=== PATIENT | female | born 1960 | race Caucasian/White ===

== ENCOUNTER → 2017-09-20 07:51 | Outpatient (CLI) | payer BC, SELFPAY ==
--- NOTE | 2017-09-20 07:54 | US_ITS ---
STUDY: RENAL ULTRASOUND - COMPLETE REASON FOR EXAM: Female, 57 years old. Bilateral flank pain. Urethral stricture. TECHNIQUE: Ultrasound evaluation of the kidneys was performed with real-time and static jeffers-scale imaging. COMPARISON: None. FINDINGS: RIGHT KIDNEY: Normal location of the right kidney, which is normal in size. The right kidney measures 10.3 cm x 4.7 cm x 5.6 cm. There is a normal cortex of the right kidney. The renal cortex measures 1.3 cm. There is no right renal mass or cyst. There are no right renal calculi. There is no right hydronephrosis. DISTAL RIGHT URETER: There is non-visualization of the distal right ureter. There is no demonstrated right ureterovesical junction calculus. There is no demonstrated right ureteral jet. LEFT KIDNEY: Normal location of the left kidney, which is normal in size. The left kidney measures 10.1 cm x 4.1 cm x 5.6 cm. There is a normal cortex of the left kidney. The renal cortex measures 1.4 cm. There is no left renal mass or cyst. There are no left renal calculi. There is no left hydronephrosis. DISTAL LEFT URETER: There is non-visualization of the distal left ureter. There is no demonstrated left ureterovesical junction calculus. There is no demonstrated left ureteral jet. BLADDER: The distended urinary bladder has a volume of 143 ml. The empty urinary bladder has a volume of 8.0 ml. There is a normal wall thickness of the distended urinary bladder. There is no demonstrated mass within the urinary bladder. There are no demonstrated bladder calculi. US/Kidney and Bladder IMPRESSION: Normal ultrasound of the kidneys and urinary bladder. Electronically Signed: Joe Rosenthal MD at 12:49 EST Tel [phone], Service support ,
== END ==
PROVIDERS: Family Provider Family Medicine; PCP Family Medicine; Visit Provider Nurse Practitioner Adult Health
DX: N35.9 Urethral stricture, unspecified (principal); R10.9 Unspecified abdominal pain
CPT/HCPCS: 76770

== ENCOUNTER → 2018-07-22 10:57 | Outpatient (CLI) | payer BC, SELFPAY ==
--- NOTE | 2018-07-22 10:59 | BI_ITS ---
MAMMOGRAPHY - BILATERAL SCREENING REASON FOR EXAM: Female, 58 years old. Routine annual screening examination. PERTINENT HISTORY: Non-contributory. TECHNIQUE: Digital bilateral breast yari (3D mammographic acquisition) in the CC and MLO projections. 2-D mediolateral oblique (MLO) and craniocaudad (CC) views of both breasts were obtained. CAD: Full Field Digital Mammography with Computer Added Detection was performed. COMPARISON: Comparison is made with prior study dated September 26, 2016 and June 22, 2015. FINDINGS: Breast Composition: The breasts are heterogeneously dense, which may obscure small masses. There are no dominant masses or suspicious calcifications. No other significant abnormalities are identified. There has been no significant change since the prior study. BI/SCREENING MAMM (CAD), BILAT IMPRESSION: Stable bilateral screening mammogram. Yearly follow-up mammogram recommended. (A) ASSESSMENT CATEGORY: BIRADS Category 1: Negative. A letter regarding these results will be sent to the patient by the facility within 30 days. Approximately 10% of breast cancers are not detected by mammography. A normal mammogram should not delay biopsy of a clinically suspicious abnormality. [id number] Electronically Signed: Joe Rosenthal MD at 14:50 EST Tel [phone], Service support ,
--- OUTSIDE RECORDS SUMMARY | 2018-09-14 16:22 | XMS RPT_ITS ---
:1960 Author Organization OHIP Support Name Relationship Address Phone YASIR BEE Unavailable [address] + [place] [address] GAR[place], AMI Unavailable [address] + [place] [address] [employer] Unavailable [address] + [place] [address] YASIR BEE Unavailable [address] + [place] [address] GAR[place], AMI Unavailable [address] + [place] [address] [employer] Unavailable [address] + [place] [address] YASIR BEE Unavailable [address] + [place] [address] GAR[place], AMI Unavailable [address] + [place] [address] [employer] Unavailable [address] + [place] [address] YASIR BEE Unavailable [address] + [place] [address] GAR[place], AMI Unavailable [address] + [place] [address] [employer] Unavailable [address] + [place] [address] YASIR BEE Unavailable [address] + [place] [address] GAR[place], AMI Unavailable [address] + [place] [address] [employer] Unavailable [address] + [place] [address] Care Team Providers Name Role Phone Irena Rico Attending Unavailable Irena Rico Referring Unavailable [place], David Primary Care Unavailable ASSESSMENT, HEALTH RISK Attending Unavailable ASSESSMENT, HEALTH RISK Referring Unavailable [place], David Primary Care Unavailable [place], Demi Attending Unavailable Rodrigo, Demi Referring Unavailable Margarito, David Primary Care Unavailable Rodrigo, Demi Attending Unavailable Margarito, David Referring Unavailable [place], Demi Attending Unavailable Rodrigo, Demi Referring Unavailable [place], David Primary Care Unavailable PROBLEMS PROBLEMS DATE TYPE CONDITION / CODE ATTENDING STATUS SOURCE 07/23/2018 Unknown R10.2 - Pelvic and Demi Wallace Active [facility] perineal pain / Community R10.2(ICD-10) Hospital Repository 07/23/2018 Unknown Z01.411 - Encounter Demi Wallace for gynecological [facility] examination [facility] (general) (routine) Repository with abnormal findings / Z01.411(ICD-10) PROCEDURES PROCEDURES No Procedure Records FoundRESULTS RESULTS PELVIC (NON ) Observed: 07/30/2018 Status: F Source: [place] 12:54 PM [facility] [place] [place] REPOSITORY [facility] Imaging Services [address] [place] [address] Pelvic (Non ) MR#: [id number] Acct: [id number] Name: VIRIDIANA BEE Rep #: [id number] : 1960 F 58 From: Joe Rosenthal MD PCP: David Pimentel MD Status: REG CLI Study: Pelvic (Non ) Date of Exam: 07/30/18 Exam# [id number] Ordering Dr: Demi Wallace LICENSED OPTICIAN-C STUDY: ULTRASOUND OF THE FEMALE PELVIS - COMPLETE REASON FOR EXAM: Female, 58 years old. Pelvic pain. LMP: The patient is postmenopausal. The patient status post hysterectomy and bilateral nephrectomy. TECHNIQUE: Transabdominal and Transvaginal TECHNICAL QUALITY: Adequate. COMPARISON: None. FINDINGS: The patient is status post hysterectomy and bilateral oophorectomy. There is no fluid in the cul-de-sac. The pre void volume of the bladder was 255 ml. US/Pelvic (Non ) IMPRESSION: The patient is status post hysterectomy and bilateral oophorectomy. Electronically Signed: Joe Rosenthal MD at 12:10 EST Tel [phone], Service support , CC: FAUSTINO Wallace; David Pimentel MD Aviation Operations Specialist: Signed REVENUE CYCLE MANAGER OFFICE VISIT Observed: 07/23/2018 Status: F Source: [place] REPORT 12:02 PM [facility] 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 Required: No Is patient in pain?: No Allergies erythromycin base Adverse Reaction (Unknown, Verified 07/23/18 11:43) rash Penicillins Adverse Reaction (Unknown, Verified 07/23/18 11:43) rash Medications conjugated estrogens 0.625 mg/gram vaginal cream TOPICAL PRN g 07/23/18 [History Confirmed 07/23/18] Is last menstrual period known: No Post menopausal: No Patient : No : No PFSH Surgical History Broken jaw (Acute) H/O section (Acute) H/O: hysterectomy (Acute) Melanoma (Acute) Family History Father Heart disease Sister Crohns disease Brother Crohns disease Grandmother Diabetes Social History number of children: 3 current occupational status: employed current occupation: [employer] Smoking Status: Never smoker alcohol intake: current alcohol intake frequency: holidays/special occasions only substance use type: does not use diet: other caffeine: Yes Type: coffee, carbonated beverages Number of servings: 1, tea Number of servings: 2 seatbelt use: always do you feel safe at home: Yes additional social history: Yasir 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 DateName GA/Weeks Outcome Route [facility] WeighInfant GeLabor LgtAnesthesiDel LocatProvider FOB t n h a n HPI ANNUAL: Details: VIRIDIANA BEE is a 58 year old who presents for annual exam. Having lower right pelvic pain, noting worse prior to bowel movement. Had issues with urinary retention 20 yr ago and had surgery to remove scarring. States feels like that but instead of affecting bladder is affecting bowel habits. States will be constipated, have pain then pain resolves after passing stool. Uses OTC stool softener. Has routine colonoscopy scheduled end of July with Dr. Zamorano but has not discussed with with him History ANATOLIY BSO History of abnormal PAP: no Last mammogram: 07/22/18 negative History of abnormal mammogram: no Colon cancer screening: scheduled Female Reproductive History Questions: Metorrhagia: No, Sexually active: No, Dyspareunia: No, PCB: No ROS Const Constitutional: Denies fatigue, weight gain or weight loss Cardio Card: Denies chest pain Resp Resp: Denies cough or shortness of breath with activity GI GI: Reports abdominal pain, constipation and change in stools; denies vomiting or bloating : Reports as per HPI and pelvic pain; denies urinary frequency, urinary urgency, vaginal discharge, vaginal itching, urinary incontinence or difficulty urinating Exam Const General: cooperative, healthy appearing, no acute distress, well developed Orientation: alert, oriented to person, oriented to place [facility] Head: normal to inspection Neck Neck: normal visual inspection Thyroid: thyroid normal Lymphatic: no lymphadenopathy noted Chest Breast inspection: normal inspection of the breasts, normal inspection of the axillae Breast palpation: normal palpation of the breasts, normal palpation of the axillae, no axillary lymphadenopathy Resp Effort AND Inspection: normal respiratory effort GI Palpation: soft, nontender, no masses Rectal Exam: deferred External Female Exam: normal external appearance, normal appearance of the urethra Urethra: normal appearance of the urethra, normal palpation Speculum Exam - Vagina: normal vaginal discharge, atrophic vaginal mucosa Speculum Exam - Cervix: cervix absent Bimanual Exam- Vagina AND Uterus: normal bimanual exam, uterus absent Bimanual Exam- Adnexa, other: normal adnexae, no adnexal masses, adnexae non-tender, pelvic support normal Pelvic Support: normal Neuro General: alert, oriented x3 Psych Affect: normal affect Assessment AND Plan Problems 1. Encounter for gynecological examination with abnormal finding Z01.411 2. Pelvic pain in female R10.2 Plan Completed breast and pelvic exam Reviewed diet and exercise Pap NA Mammogram recent Colonoscopy scheduled. Encouraged should make Dr. Zamorano aware of changes in bowel habits and pain prior to colonoscopy Bone density NA RTO 1 year, prn with problems Demi Wallace [employer] Orders Orders: Coding Level of Care Code Off vis,est,prev 40-64yrs Diagnoses Encounter for gynecological examination with abnormal finding Z01.411 Gynecological examination findings: abnormal findings PRESENT Pelvic pain in female R10.2 07/23/18 1202 <Electronically signed by Demi GAMBOA> Date Deim PLASENCIAC Cosigner Signature: Date (if applicable) CC: SCREENING MAMM (CAD), Observed: 07/22/2018 Status: F Source: [facility] 10:59 AM [facility] [place] [place] REPOS[facility]ORY [facility] Imaging Services [address] [place] [address] SCREENING MAMM (CAD), BILAT MR#: [id number] Acct: [id number] Name: VIRIDIANA BEE Rep #: [id number] : 1960 F 58 From: Joe Rosenthal MD PCP: David Pimnetel MD Status: [facility] Study: SCREENING MAMM (CAD), BILAT Date of Exam: 07/22/18 Exam# [id number] Ordering Dr: Demi Wallace MAMMOGRAPHY - BILATERAL SCREENING REASON FOR EXAM: Female, 58 years old. Routine annual screening examination. PERTINENT HISTORY: Non-contributory. TECHNIQUE: Digital bilateral breast yari (3D mammographic acquisition) in the CC and MLO projections. 2-D mediolateral oblique (MLO) and craniocaudad (CC) views of both breasts were obtained. CAD: Full Field Digital Mammography with Computer Added Detection was performed. COMPARISON: Comparison is made with prior study dated September 26, 2016 and June 22, 2015. FINDINGS: Breast Composition: The breasts are heterogeneously dense, which may obscure small masses. There are no dominant masses or suspicious calcifications. No other significant abnormalities are identified. There has been no significant change since the prior study. BI/SCREENING MAMM (CAD), BILAT IMPRESSION: Stable bilateral screening mammogram. Yearly follow-up mammogram recommended. (A) ASSESSMENT CATEGORY: BIRADS Category 1: Negative. A letter regarding these results will be sent to the patient by the facility within 30 days. Approximately 10% of breast cancers are not detected by mammography. A normal mammogram should not delay biopsy of a clinically suspicious abnormality. [id number] Electronically Signed: Joe Rosenthal MD at 14:50 EST Tel [phone], Service support , CC: FAUSTINO Wallace; David Pimentel MD Aviation Operations Specialist: Signed LIPID PROFILE Collected: 06/04/2018 Status: F Source: [place] 9:29 AM [facility] [place] [place] REPOSITORY TYPE CODE TESTS RESULT OUT OF RANGE REFERENCE UNITS LAB L501.4900 200 mg/dL High CHOL 214 Result Comment: <200 mg/dL Desirable 200-240 mg/dL Borderline >240 mg/dL High Risk LAB L501.5000 mg/dL Normal TRIG 137 Result Comment: The drugs N-Acetylcysteine and Metamizole may falsely depress this assay. Serum Triglycerides Reference Interval Normal <150 mg/dL Borderline high 150 - 199 mg/dL High 200 - 499 mg/dL Very High > or = 500 mg/dL LAB L501.6400 mg/dL Normal HDL 64 Result Comment: The drugs N-Acetylcysteine and Metamizole may falsely depress this assay. Reference Range HDL <40 mg/dL Low HDL Cholesterol HDL >or= 60 mg/dL High HDL Cholesterol LAB L501.6500 0-130 mg/dL Normal LDL 123 LAB L501.6600 5-40 mg/dL Normal VLDL 27 Performed By: #### L500.4100, L501.0100 #### [facility] [address] [place], [address] GLUCOSE Collected: 06/04/2018 Status: F Source: [place] 9:29 AM [facility] [place] [place] REPOSITORY TYPE CODE TESTS RESULT OUT OF RANGE REFERENCE UNITS LAB L501.0100 74-106 mg/dL Normal GLU 77 Result Comment: Please note revised GLUCOSE reference range effective 2017. Performed By: #### L500.4100, L501.0100 #### [facility] [address] [place], [address] CNPN Observed: 06/04/2018 Status: COMPLETED Source: [place] 12:00 AM [facility] REPOSITORY Telephone (ASWSTR) VIRIDIANA BEE ([id number]) 1960 F Date Time Provider Department 06/04/18 DAVID PIMENTEL ASRepliconTR During your visit today, we recorded the following information about you: Michell Henriquez RN, RN 06/04/2018 10:33 AM Signed Pt overdue for screening colonoscoy. Okay for open access. Please call pt to schedule. FATOU Lopez 06/04/2018 1:39 PM Signed 1st failed attempt to contact patient, left voice message Aliza Arana Psr 06/10/2018 1:46 PM Signed 2nd failed attempt to contact patient, left voice message. Evie Arana Psr Evie Arana Psr 06/17/2018 10:15 AM Signed 3rd failed attempt to contact patient, left voice message. Mailing colonoscopy letter. Evie Bullardsil Psr Evie Hydelouise Psr 06/17/2018 11:20 AM Signed Scheduled patient for open access colonoscopy with Dr. Zamorano on 08/16/18. Mailing instructions. Evie Bullardsil Psr WSTR OPEN ACCESS QUESTIONNAIRE 1. Are you or could you be ? No 2. Are you currently having any stomach/gastrointestinal issues at this time such as constipation, diarrhea, abdominal pain, rectal bleeding etc? No 3. Do you have an implanted device such as a defibrillator, pacemaker, Cardiac Stent or deep brain stimulation device? No 4. Do you have any new or past cardiac (heart) or pulmonary (lung) issues? No 5. Is the patient's BMI 40 or greater? No:There is no height or weight on file to calculate BMI.. Last Wt 04/10/17 : 80.3 kg (177 lb) Last Ht 09/26/16 : 167 cm (5' 5.75) 6. Have you had difficulty with prior sedations or complications with other procedures? No 7. Have you had difficulty with anesthesia previously re: ? Difficult intubation? No ? Other difficulty or allergic reaction to anesthesia other than post op N/V? No 8. Do you currently use oxygen or a breathing machine at night? No 9. Do you take any narcotics, depression or anti-Anxiety medications or 3 or more prescription drugs on a daily basis? No 10. Do you use any illegal or recreational drugs? No 11. Have you been hospitalized in the past 6 weeks? No 12. Are you on dialysis or have Chronic Kidney Disease? No 13. Have you been diagnosed with chronic liver disease such as hepatitis or cirrhosis? No 14. Do you have a seizure disorder? No 15. Do you have difficulty swallowing? No 16. Do you have ulcerative colitis or Crohn's disease? No 17. Do you take any Blood thinners, including Aspirin or fish oil? No 18. Do you have any blood disorders (re:hemophiliac)? No 19. Are you Diabetic? No 20. Any other important health information we should be made aware of prior to your colonoscopy? No 21. Any alcohol use: No. To be completed by LIP: Patient appropriate for Open Access Colonoscopy: Yes: appropriate for Open Access Procedure Checklist: Prior to closing the encounter: ? Complete questionnaire: Yes ? Confirm Prep order has been Ordered/Pended: Yes. ? Patient's procedure could be delayed if not given the script for the prep. Please ensure the prep is escripted to pharmacy or printed. Instructions for the prep will print upon filing or pending this smartset. ? Please send all open access questionnaires to [facility] Sched Pool #[id number] Evie Hydelouise Psr 06/17/2018 11:20 AM Signed Health Information For Patients and the Community How to Prepare for Your Colonoscopy Using Golytely, Nulytely, Trilyte or Colyte Preparations IMPORTANT - Please Read These Instructions at Least 2 Weeks Before Your Colonoscopy Wan Instructions: ?Your bowel must be empty so that your doctor can clearly view your colon. Follow all of the instructions in this handout EXACTLY as they are written. If you do NOT follow the directions for when to start drinking the bowel preparation (see next page), your colonoscopy WILL be cancelled. ?Do NOT eat any solid food the ENTIRE day before your colonoscopy. ?Buy your bowel preparation at least 5 days before your colonoscopy. ?Do NOT mix the solution until the day before your colonoscopy. Designated Reservations Manager on the Day of Your Exam A responsible family member or friend MUST come with you to your colonoscopy and REMAIN in the endoscopy area until you are discharged! You are NOT ALLOWED to drive, take a taxi or bus, or leave the Endoscopy Center ALONE. If you do not have a responsible car driver (family member or friend) with you to take you home, your exam cannot be done with sedation and will be cancelled. Medications Some of the medicines you take may need to be stopped or adjusted before your colonoscopy. You MUST call the doctor who ordered any of the following medicines at least 2 weeks before your colonoscopy. ?Blood thinners -- such as Coumadin? (warfarin), Plavix? (clopidogrel), Ticlid? (ticlopidine hydrochloride), Agrylin? (anagrelide), Xarelto? (Rivaroxaban), Pradaxa? (Dabigatran), Eliquis? (Apixaban), and Effient? (Prasugrel). ?Insulin or diabetes pills. Please call the doctor that monitors your glucose levels. Your insulin dosage may need to be adjusted due to the diet restrictions required with this bowel preparation. (Please bring your diabetes medicines with you on the day of your procedure.) If you take aspirin, take it and ALL other medications prescribed by your doctor. On the day of your colonoscopy, take your medications with a sip of water. Revised 09/2016 1 Five (5) Days Before Your Colonoscopy ?Do NOT take medicines that stop diarrhea -- such as Imodium?, Kaopectate?, or Pepto Bismol?. ?Do NOT take fiber supplements -- such as Metamucil?, Citrucel?, or Perdiem?. ?Do NOT take products that contain iron -- such as multi-vitamins -- (the label lists what is in the products). ?Do NOT take vitamin E. Buy the prescription bowel preparation solution at your local pharmacy or drugstore pharmacy. Three (3) Days Before Your Colonoscopy Do NOT eat high-fiber foods -- such as popcorn, beans, seeds (flax, sunflower, quinoa), multigrain bread, nuts, salad/vegetables, or fresh and dried fruit. One (1) Day Before Your Colonoscopy Only drink clear liquids the ENTIRE DAY before your colonoscopy. Do NOT eat any solid foods. Drink at least 8 ounces of clear liquids every hour after waking up. The clear liquids you can drink include: ?water, apple, or white grape juice; broth; coffee or tea (without milk or creamer); clear carbonated beverages such as nafisa koby or lemon-white mountain ak soda; Gatorade? or other sports drinks (not red); Beto-Aid? or other flavored drinks (not red). You may eat plain jello or other gelatins (not red) or popsicles (not red). Do NOT drink alcohol on the day before or the day of the procedure. 2 Revised 09/2016 When to Mix and Drink Your Bowel Prep Follow the instructions on the label. After mixing, place the solution in the refrigerator for a couple of hours before drinking. You may add the flavor packet that came with the bowel preparation. DO NOT add ice, sugar or any flavorings to the solution. Evening Before Your Colonoscopy ?Start drinking the bowel preparation at 6 PM the evening before your colonoscopy. Drink an 8-oz glass of bowel preparation every 10 minutes. You must finish drinking the solution by 9 PM the night before your scheduled procedure. ?You may continue to drink clear liquids only until midnight. Do NOT eat or drink ANYTHING after midnight the night before your procedure or your procedure may be cancelled. This is for your safety and will reduce the risk of having any food or liquid in your stomach move into your lungs (aspiration) during a procedure. If you take aspirin, take it and ALL other prescribed medicines with a sip of water on the day of your colonoscopy. Contact Information: If you are unable to keep your appointment or have any questions about the instructions, please call the facility where the procedure is being performed. Call between the hours of 8:00 AM and 5:00 PM. If you are calling after 5:00 PM, please call Nurse international nurse at [phone]. [facility] [address] [place] [address] Index # [id number] Revised 09/2016 3 Colonoscopy Procedure Overview Please Read Prior to the Procedure What is a Colonoscopy A colonoscopy is an outpatient procedure in which the inside of the large intestine (colon and rectum) is examined. A colonoscopy is commonly used to evaluate gastrointestinal symptoms, such as rectal and intestinal bleeding, abdominal pain, or changes in bowel habits. Colonoscopies are also performed in individuals without symptoms to check for colorectal polyps or cancer. A screening colonoscopy is recommended for anyone 50 years of age and older, and for anyone with parents, siblings or children with a history of colorectal cancer or polyps. What Happens Before a Colonoscopy To have a successful colonoscopy, your bowel must be empty so that your physician can clearly view the colon. To do this, it is very important to read and follow all of the instructions given to you at least 2 weeks BEFORE your exam. If your bowel is not empty, your colonoscopy will not be successful and may have to be repeated. If you feel nauseated or vomit while taking the bowel preparation, wait 30 minutes before drinking more fluid and start with small sips of solution. Some activity (such as walking) or a few soda crackers may help decrease the nausea you are feeling. If the nausea persists, please contact nurse collection correspondent at [phone]. You may experience skin irritation around the anus due to the passage of liquid stools. To prevent and treat skin irritation, you should: ?Apply Vaseline? or Desitin? ointment to the skin around the anus before drinking the bowel preparation medications. These products can be purchased at any drugstore. ?Wipe the skin after each bowel movement with disposable wet wipes instead of toilet paper. These are found in the toilet paper area of the store. ?Sit in a bathtub filled with warm water for 10 to 15 minutes after you finish passing a stool; after soaking, blot the skin dry with a soft cloth, apply Vaseline? or Desitin? ointment to the anal area, and place a cotton ball just outside your anus to absorb leaking fluid. What Happens During a Colonoscopy During a colonoscopy, an experienced physician uses a colonoscope (a long, flexible instrument about 1/2 inch in diameter) to view the lining of the colon. The colonoscope is inserted into the rectum and advanced through the large intestine. If necessary during a colonoscopy, small amounts of tissue can be removed for analysis (a biopsy) and polyps can be identified and entirely removed. In many cases, a colonoscopy allows accurate diagnosis and treatment of colorectal problems without the need for a major operation. Revised 09/2016 5 ?You are asked to wear a hospital gown and an IV will be started. ?You are given a pain reliever and a sedative intravenously (in your vein). You will feel relaxed and somewhat drowsy. ?You will lie on your left side, with your knees drawn up towards your chest. ?A small amount of air is used to expand the colon so the physician can see the colon isabel. ?You may feel mild cramping during the procedure. Cramping can be reduced by taking slow, deep breaths. ?The colonoscope is slowly withdrawn while the lining of your bowel is carefully examined. ?The procedure lasts from 30 minutes to 1 hour. What Happens After a Colonoscopy ?You will stay in a recovery room for observation until you are ready for discharge. ?You may feel some cramping or a sensation of having gas, but this quickly passes. ?If sedation has been given, a responsible family member or friend must drive you home. ?Avoid alcohol, driving, and operating machinery for 24 hours following the procedure. ?Unless otherwise instructed, you may immediately return to your normal diet. We recommend you wait until the day after your procedure to resume normal activities. ?If polyps were removed or a biopsy was taken, the physician performing your colonoscopy will tell you when it is safe to resume taking your blood thinners. ?If a biopsy was taken or a polyp was removed, you may notice a little amount of rectal bleeding for 1 to 2 days after the procedure. If you have a large amount of rectal bleeding, high or persistent fevers, or severe abdominal pain within the next 2 weeks, please go to your local emergency room and call the physician who performed your exam. 6 Revised 09/2016 ?Copyright 6108-9010 [facility]. All rights reserved. Revised 09/2016 Evie Devlin 06/17/2018 11:21 AM Signed Addended by: EVIE MONROE on: 06/17/2018 11:21 AM Modules accepted: Claire Gibson MD 06/18/2018 12:22 PM Signed Addended by: DAVID PIMENTEL MD on: 06/18/2018 12:22 PM Modules accepted: Orders Allergies As of Date: 06/04/2018 Noted Allergy Reaction AMPICILLIN 05/22/2005 ERYTHROMYCIN 05/22/2005 seasonal allergies [Other] 09/25/2005 Date Reviewed: 04/10/2017 Reviewed by: Tess Spears Ma - Fully Assessed Reason for Visit: open access colonoscopy [Other] Primary Visit Diagnosis:Special screening for malignant neoplasms, colon [Z12.11] Order(s):LIPID PANEL (EXTERNAL) [5314596] Order #: [id number] LIPID PANEL (EXTERNAL) [9410496] Order #: [id number] Order #: [id number] COLONOSCOPY SCRN NOT HIGH RISK [Y9981CAF] Order #: [id number]: 1 FUTURE Prescriptions as of 06/04/2018 Sig: PEG 3350 240 GRAM-ELECTROLYTE* Take 4,000 mL by mouth one ti* TRIAMCINOLONE ACETONIDE 0.1 %* Apply 1 application to affect* SCOPOLAMINE 1 MG OVER 3 DAYS * Apply 1 Patch as directed frank* CONJUGATED ESTROGENS 0.625 MG* Use as directed twice a week * PIEXNQATVQJP-NCDHKFLF-ETCYVE * Take 1 tablet by mouth once d* Problem List As Of Date 06/04/2018 Noted Resolved DIFFUS CYSTIC MASTOPATHY [N60.19] INVALID FOR* ATROPHIC VAGINITIS [N95.2] INVALID FOR* Osteoporosis [M81.0] INVALID FOR* More... More... Routine gynecological examination [Z01.419] INVALID FOR*03/01/2012 Class: Chronic More... LBBB (Left Bundle Branch Block) [I44.7] INVALID FOR* More... Abdominal pain, right upper quadrant [R10.11] INVALID FOR* Lumbosacral spondylosis without myelopathy [M47*INVALID FOR* Backache, unspecified [M54.9] INVALID FOR* Other instructions from your clinician: Health Information For Patients and the Community How to Prepare for Your Colonoscopy Using Golytely, Nulytely, Trilyte or Colyte Preparations IMPORTANT - Please Read These Instructions at Least 2 Weeks Before Your Colonoscopy Wan Instructions: ?Your bowel must be empty so that your doctor can clearly view your colon. Follow all of the instructions in this handout EXACTLY as they are written. If you do NOT follow the directions for when to start drinking the bowel preparation (see next page), your colonoscopy WILL be cancelled. ?Do NOT eat any solid food the ENTIRE day before your colonoscopy. ?Buy your bowel preparation at least 5 days before your colonoscopy. ?Do NOT mix the solution until the day before your colonoscopy. Designated Reservations Manager on the Day of Your Exam A responsible family member or friend MUST come with you to your colonoscopy and REMAIN in the endoscopy area until you are discharged! You are NOT ALLOWED to drive, take a taxi or bus, or leave the Endoscopy Center ALONE. If you do not have a responsible car driver (family member or friend) with you to take you home, your exam cannot be done with sedation and will be cancelled. Medications Some of the medicines you take may need to be stopped or adjusted before your colonoscopy. You MUST call the doctor who ordered any of the following medicines at least 2 weeks before your colonoscopy. ?Blood thinners -- such as Coumadin? (warfarin), Plavix? (clopidogrel), Ticlid? (ticlopidine hydrochloride), Agrylin? (anagrelide), Xarelto? (Rivaroxaban), Pradaxa? (Dabigatran), Eliquis? (Apixaban), and Effient? (Prasugrel). ?Insulin or diabetes pills. Please call the doctor that monitors your glucose levels. Your insulin dosage may need to be adjusted due to the diet restrictions required with this bowel preparation. (Please bring your diabetes medicines with you on the day of your procedure.) If you take aspirin, take it and ALL other medications prescribed by your doctor. On the day of your colonoscopy, take your medications with a sip of water. Revised 09/2016 1 Five (5) Days Before Your Colonoscopy ?Do NOT take medicines that stop diarrhea -- such as Imodium?, Kaopectate?, or Pepto Bismol?. ?Do NOT take fiber supplements -- such as Metamucil?, Citrucel?, or Perdiem?. ?Do NOT take products that contain iron -- such as multi- vitamins -- (the label lists what is in the products). ?Do NOT take vitamin E. Buy the prescription bowel preparation solution at your local pharmacy or drugstore pharmacy. Three (3) Days Before Your Colonoscopy Do NOT eat high-fiber foods -- such as popcorn, beans, seeds (flax, sunflower, quinoa), multigrain bread, nuts, salad/vegetables, or fresh and dried fruit. One (1) Day Before Your Colonoscopy Only drink clear liquids the ENTIRE DAY before your colonoscopy. Do NOT eat any solid foods. Drink at least 8 ounces of clear liquids every hour after waking up. The clear liquids you can drink include: ?water, apple, or white grape juice; broth; coffee or tea (without milk or creamer); clear carbonated beverages such as nafisa koby or lemon-white mountain ak soda; Gatorade? or other sports drinks (not red); Beto-Aid? or other flavored drinks (not red). You may eat plain jello or other gelatins (not red) or popsicles (not red). Do NOT drink alcohol on the day before or the day of the procedure. 2 Revised 09/2016 When to Mix and Drink Your Bowel Prep Follow the instructions on the label. After mixing, place the solution in the refrigerator for a couple of hours before drinking. You may add the flavor packet that came with the bowel preparation. DO NOT add ice, sugar or any flavorings to the solution. Evening Before Your Colonoscopy ?Start drinking the bowel preparation at 6 PM the evening before your colonoscopy. Drink an 8-oz glass of bowel preparation every 10 minutes. You must finish drinking the solution by 9 PM the night before your scheduled procedure. ?You may continue to drink clear liquids only until midnight. Do NOT eat or drink ANYTHING after midnight the night before your procedure or your procedure may be cancelled. This is for your safety and will reduce the risk of having any food or liquid in your stomach move into your lungs (aspiration) during a procedure. If you take aspirin, take it and ALL other prescribed medicines with a sip of water on the day of your colonoscopy. Contact Information: If you are unable to keep your appointment or have any questions about the instructions, please call the facility where the procedure is being performed. Call between the hours of 8:00 AM and 5:00 PM. If you are calling after 5:00 PM, please call Nurse international nurse at [phone]. [facility] [address] [address] Index # [id number] Revised 09/2016 3 Colonoscopy Procedure Overview Please Read Prior to the Procedure What is a Colonoscopy A colonoscopy is an outpatient procedure in which the inside of the large intestine (colon and rectum) is examined. A colonoscopy is commonly used to evaluate gastrointestinal symptoms, such as rectal and intestinal bleeding, abdominal pain, or changes in bowel habits. Colonoscopies are also performed in individuals without symptoms to check for colorectal polyps or cancer. A screening colonoscopy is recommended for anyone 50 years of age and older, and for anyone with parents, siblings or children with a history of colorectal cancer or polyps. What Happens Before a Colonoscopy To have a successful colonoscopy, your bowel must be empty so that your physician can clearly view the colon. To do this, it is very important to read and follow all of the instructions given to you at least 2 weeks BEFORE your exam. If your bowel is not empty, your colonoscopy will not be successful and may have to be repeated. If you feel nauseated or vomit while taking the bowel preparation, wait 30 minutes before drinking more fluid and start with small sips of solution. Some activity (such as walking) or a few soda crackers may help decrease the nausea you are feeling. If the nausea persists, please contact nurse collection correspondent at [phone]. You may experience skin irritation around the anus due to the passage of liquid stools. To prevent and treat skin irritation, you should: ?Apply Vaseline? or Desitin? ointment to the skin around the anus before drinking the bowel preparation medications. These products can be purchased at any drugstore. ?Wipe the skin after each bowel movement with disposable wet wipes instead of toilet paper. These are found in the toilet paper area of the store. ?Sit in a bathtub filled with warm water for 10 to 15 minutes after you finish passing a stool; after soaking, blot the skin dry with a soft cloth, apply Vaseline? or Desitin? ointment to the anal area, and place a cotton ball just outside your anus to absorb leaking fluid. What Happens During a Colonoscopy During a colonoscopy, an experienced physician uses a colonoscope (a long, flexible instrument about 1/2 inch in diameter) to view the lining of the colon. The colonoscope is inserted into the rectum and advanced through the large intestine. If necessary during a colonoscopy, small amounts of tissue can be removed for analysis (a biopsy) and polyps can be identified and entirely removed. In many cases, a colonoscopy allows accurate diagnosis and treatment of colorectal problems without the need for a major operation. Revised 09/2016 5 ?You are asked to wear a hospital gown and an IV will be started. ?You are given a pain reliever and a sedative intravenously (in your vein). You will feel relaxed and somewhat drowsy. ?You will lie on your left side, with your knees drawn up towards your chest. ?A small amount of air is used to expand the colon so the physician can see the colon isabel. ?You may feel mild cramping during the procedure. Cramping can be reduced by taking slow, deep breaths. ?The colonoscope is slowly withdrawn while the lining of your bowel is carefully examined. ?The procedure lasts from 30 minutes to 1 hour. What Happens After a Colonoscopy ?You will stay in a recovery room for observation until you are ready for discharge. ?You may feel some cramping or a sensation of having gas, but this quickly passes. ?If sedation has been given, a responsible family member or friend must drive you home. ?Avoid alcohol, driving, and operating machinery for 24 hours following the procedure. ?Unless otherwise instructed, you may immediately return to your normal diet. We recommend you wait until the day after your procedure to resume normal activities. ?If polyps were removed or a biopsy was taken, the physician performing your colonoscopy will tell you when it is safe to resume taking your blood thinners. ?If a biopsy was taken or a polyp was removed, you may notice a little amount of rectal bleeding for 1 to 2 days after the procedure. If you have a large amount of rectal bleeding, high or persistent fevers, or severe abdominal pain within the next 2 weeks, please go to your local emergency room and call the physician who performed your exam. 6 Revised 09/2016 ?Copyright 7429-7423 [facility]. All rights reserved. Revised 09/2016 Prescriptions ordered this encounter Disp Refills Start End PEG 3350 240 GRAM-ELECTROLYTES 22.72* 4000* 0 06/18/2018 06/18/2018 Route: ORAL Sig: Take 4,000 mL by mouth one time only for 1 dose. Letter Text [address] [place] [address] 06/17/2018 Viridiana Bee [id number] Dear Viridiana , As your healthcare provider, our records indicate that you are due for colorectal cancer screening. This is extremely important if you have any family history of colon cancer as well as to the general population over the age of 50. A colonoscopy is a preventative test that we offer to complete this screening. Most insurances will pay for this test without any out of pocket expense to the patient. We have been unsuccessful in reaching you by phone to discuss this procedure. Please contact our schedulers at [phone] schedule an appointment or contact your primary care physician if you have any questions regarding colon cancer screening. As always, your health is of primary concern to our practice. We look forward to hearing from you. Sincerely, [facility] Encounter Status:Closed by EVIE MONROE on 06/17/18 KIDNEY AND BLADDER Observed: 09/20/2017 Status: F Source: JULIO CÉSAR 7:55 AM [facility] [place] [place] [facility] Imaging Services [address] [place] [address] Kidney and Bladder MR#: [id number] Acct: [id number] Name: VIRIDIANA BEE Rep #: [id number] : 1960 F 57 From: Joe Rosenthal MD PCP: David Pimentel MD Status: REG CLI Study: Kidney and Bladder Date of Exam: 09/20/17 Exam# [id number] Ordering Dr: Irena Rico LICENSED OPTICIAN-C STUDY: RENAL ULTRASOUND - COMPLETE REASON FOR EXAM: Female, 57 years old. Bilateral flank pain. Urethral stricture. TECHNIQUE: Ultrasound evaluation of the kidneys was performed with real-time and static jeffers-scale imaging. COMPARISON: None. FINDINGS: RIGHT KIDNEY: Normal location of the right kidney, which is normal in size. The right kidney measures 10.3 cm x 4.7 cm x 5.6 cm. There is a normal cortex of the right kidney. The renal cortex measures 1.3 cm. There is no right renal mass or cyst. There are no right renal calculi. There is no right hydronephrosis. DISTAL RIGHT URETER: There is non-visualization of the distal right ureter. There is no demonstrated right ureterovesical junction calculus. There is no demonstrated right ureteral jet. LEFT KIDNEY: Normal location of the left kidney, which is normal in size. The left kidney measures 10.1 cm x 4.1 cm x 5.6 cm. There is a normal cortex of the left kidney. The renal cortex measures 1.4 cm. There is no left renal mass or cyst. There are no left renal calculi. There is no left hydronephrosis. DISTAL LEFT URETER: There is non-visualization of the distal left ureter. There is no demonstrated left ureterovesical junction calculus. There is no demonstrated left ureteral jet. BLADDER: The distended urinary bladder has a volume of 143 ml. The empty urinary bladder has a volume of 8.0 ml. There is a normal wall thickness of the distended urinary bladder. There is no demonstrated mass within the urinary bladder. There are no demonstrated bladder calculi. US/Kidney and Bladder IMPRESSION: Normal ultrasound of the kidneys and urinary bladder. Electronically Signed: Joe Rosenthal MD at 12:49 EST Tel [phone], Service support , CC: Irena Rico LICENSED OPTICIAN; David Pimentel MD Aviation Operations Specialist: Signed ALLERGIES ALLERGIES DATE TYPE / CODE NAME / CODE REACTION SEVERITY SOURCE 07/23/2018 Drug Penicillins/[id number] Rash Unknown Julio César Allergy/416 476(RXNORM) Formerly [facility] 322640([facility] ED [facility]) Repository 07/23/2018 Drug erythromycin Rash Unknown [place] Allergy/416 base/[id number](RXN Formerly [facility] 201898([facility] ED CT) Repository ENCOUNTERS ENCOUNTERS ADMIT/DISCHARGE ACCOUNT ADMITTING ENCOUNTER LOCATION SOURCE NUMBER CLASS 07/30/2018 [id number] Ambulatory Julio César [place] 1 [facility] ing:OPUS Repository 07/23/2018/ [id number] Ambulatory BMSBuilding:B Julio César [address] [facility] Repository 07/22/2018 [id number] Ambulatory [place] Julio César 4 [facility] ing:OPBI Repository 06/04/2018 [id number] Ambulatory Julio César [place] 2 [facility] ing:HW Repository 09/20/2017 [id number] Ambulatory Julio César [place] 8 [facility] ing:[facility] Repository PAYERS PAYERS ENCOUNTER GUARANTOR PAYER SUBSCRIBER SOURCE 07/30/2018 LAURESA A Primary LAURESA A Julio César [id number] JUSTIN Insurance:ANTHEMPolic DURHAMDOB: [facility] [place], [place] CM, arabella Number: [id number] [address]Nij: [id number] Repository Date:[id number] ) [place], [place] [address]IB: 07/30/2018 Secondary NOT GIVENUNK Julio César Insurance:SELF PAY [facility] Number: Effective Repository Date:2018-07-24 07/23/2018 LAURESA A Primary LAURESA A Julio César [id number] JUSTIN Insurance:ANTHEMPolic DURHAMDOB: [facility], y Number: [id number] [address]Fju: [id number] Repository Date:[id number], [place] [address]GB: 07/23/2018 Secondary NOT GIVENUNK Julio César Insurance:SELF PAY [facility] Number: Effective Repository Date:2018-07-23 07/22/2018 LAURESA A Primary LAURESA A Julio César [id number] JUSTIN Insurance:ANTHEMPolic DURHAMDOB: [facility], y Number: [id number] [address]Wqv: [id number] Repository Date:3556-93-[address] [place], [place] [address]QF: 07/22/2018 Secondary NOT GIVENUNK Julio César Insurance:SELF PAY [facility] Number: Effective Repository Date:2018-05-21 06/04/2018 LAURESA A Primary NOT GIVENUNK Julio César [id number] JUSTIN Insurance:SELF PAY [facility] [address]Pux: [phone]) Number: Effective Repository [phone] () Date:2018-05-24 09/20/2017 LAURESA A Primary LAURESA A Julio César [id number] JUSTIN Insurance:ANTHEMPolic DURHAMDOB: [place] Number: [id number] [address]Rda: [phone]) [id number] Repository [phone] () Date:3620-28-[address], [place] [address]IZ: 09/20/2017 Secondary NOT GIVENUNK Julio César Insurance:SELF PAY [facility] Number: Effective Repository Date:2017-09-10
== END ==
PROVIDERS: Family Provider Family Medicine; PCP Family Medicine; Referring Provider Nurse Practitioner Women's Health; Visit Provider Nurse Practitioner Women's Health
DX: Z12.31 Encounter for screening mammogram for malignant neoplasm of breast (principal)
CPT/HCPCS: 77063; 77067

== ENCOUNTER → 2018-07-30 12:53 | Outpatient (CLI) | payer BC, SELFPAY ==
[2018-07-23 11:28] VITALS: BMI 26.9
--- NOTE | 2018-07-30 12:54 | US_ITS ---
STUDY: ULTRASOUND OF THE FEMALE PELVIS - COMPLETE REASON FOR EXAM: Female, 58 years old. Pelvic pain. LMP: The patient is postmenopausal. The patient status post hysterectomy and bilateral nephrectomy. TECHNIQUE: Transabdominal and Transvaginal TECHNICAL QUALITY: Adequate. COMPARISON: None. FINDINGS: The patient is status post hysterectomy and bilateral oophorectomy. There is no fluid in the cul-de-sac. The pre void volume of the bladder was 255 ml. US/Pelvic (Non ) IMPRESSION: The patient is status post hysterectomy and bilateral oophorectomy. Electronically Signed: Joe Rosenthal MD at 12:10 EST Tel [phone], Service support ,
--- OUTSIDE RECORDS SUMMARY | 2018-09-15 15:35 | XMS RPT_ITS ---
:1960 Author Organization OHIP Support Name Relationship Address Phone WINIFRED BEE Unavailable [address] + [place] [address] [place], AMI Unavailable [address] + [place] [address] [employer] Unavailable [address] + [place] [address] WINIFRED BEE Unavailable [address] + [place] [address] [place], AMI Unavailable [address] + [place] [address] [employer] Unavailable [address] + [place] [address] WINIFRED BEE Unavailable [address] + [place] [address] [place], AMI Unavailable [address] + [place] [address] [employer] Unavailable [address] + [place] [address] WINIFRED BEE Unavailable [address] + [place] [address] [place], AMI Unavailable [address] + [place] [address] [employer] Unavailable [address] + [place] [address] WINIFRED BEE Unavailable [address] + [place] [address] [place], AMI Unavailable [address] + [place] [address] [employer] Unavailable [address] + [place] [address] Care Team Providers Name Role Phone Irena Rico Attending Unavailable Irena Rico Referring Unavailable Margarito, Davdi Primary Care Unavailable ASSESSMENT, HEALTH RISK Attending Unavailable ASSESSMENT, HEALTH RISK Referring Unavailable Margarito, David Primary Care Unavailable Mcalester, Demi Attending Unavailable Rodrigo, Deim Referring Unavailable [place], David Primary Care Unavailable Rodrigo, Demi Attending Unavailable [place], David Referring Unavailable Mcalester, Demi Attending Unavailable Mcalester, Demi Referring Unavailable [place], David Primary Care Unavailable DEBBIE KATZ (LE) Attending Unavailable MARGARITO, DAVID Hassan Referring Unavailable ROSE MARIE, ABDULAZIZ T Admitting Unavailable ROSE MARIE, ABDULAZIZ T Attending Unavailable MARGARITO, DAVID Hassan Referring Unavailable DEBBIE KATZ (LE) Attending Unavailable MARGARITO, DAVID Hasasn Referring Unavailable PROBLEMS PROBLEMS DATE TYPE CONDITION / CODE ATTENDING STATUS SOURCE 08/16/2018 Active Encounter for ROSE MARIE Active [facility] screening for ABDULAZIZ [facility] malignant neoplasm Repository of colon / Z12.11(ICD-10) 07/23/2018 Unknown R10.2 - Pelvic and Demi Wallace Active [place] perineal pain / Community R10.2(ICD-10) Hospital Repository 07/23/2018 Unknown Z01.411 - Encounter McalesterDemi mejia Active [place] for gynecological [facility] (general) (routine) Repository with abnormal findings / Z01.411(ICD-10) PROCEDURES PROCEDURES No Procedure Records FoundRESULTS RESULTS PROGRESS Observed: 09/04/2018 Status: COMPLETED Source: [place] 6:02 PM [facility] REPOSITORY HNO ID: [id number] Author: Debbie Katz (Pa) Service: (none) Author Type: Physician Senior Analyst Type: Progress Notes Filed: 09/04/2018 6:17 PM Note Text: FOLLOW UP VISIT - ENDOSCOPY NAME: Viridiana Rico [facility] NO.: [id number] DATE OF SERVICE: 08/29/2018 : 1960 REFERRING PHYSICIAN: David Pimentel MD Viridiana is a patient I am following with Dr. Trotter for screening colonoscopy and history of chronic right lower quadrant abdominal pain associated with constipation. Dr. Trotter performed lower endoscopy on 08/16/18. The patient was found to have a 4 mm polyp in the recto-sigmoid colon which was removed, diverticolosis and otherwise normal appearing colon. Random biopsies were also taken due to her history of abdominal pain. Pathology demonstrated: FINAL DIAGNOSIS 1. Colon, random biopsies (A) - Colonic mucosa with no significant diagnostic alterations. 2. Rectum, polypectomy (B) - Tubular adenoma with thermal artifact. ? AEB/glw 08/19/2018 COMMENT Morphologic features of lymphocytic and collagenous colitis are not identified in the colon. There is no morphologic evidence of acute colitis. The patient notes no complaints since the procedure. Has noted improvement her abdominal symptoms since bowel prep and endoscopy, denies complaints currently. VITALS: There were no vitals taken for this visit. On examination, the abdomen is benign. Assessment IMPRESSION: constipation, history of right lower quadrant abdominal pain. Adenomatous colon polyp removed, random biopsies unremarkable PLAN: The operative findings and pathology were discussed with the patient, and the patient had the opportunity to ask questions and have questions answered. If the patient notes any problems or changes in bowel function, the patient should contact me immediately. Otherwise I recommend follow up endoscopy in 5 years-HM updated and recall generated. I have also recommended high-fiber diet and/or daily fiber supplementation. Patient verbalized understanding of all above and agreed with the plan Diagnoses: (D12.6) Tubular adenoma of colon (primary encounter diagnosis) (K59.09) Other constipation Debbie Katz PA-C CNOV Observed: 08/29/2018 Status: COMPLETED Source: [place] 1:30 PM [facility] REPOSITORY Office Visit (GENSWS) VIRIDIANA BEE ([id number]) 1960 F Date Time Provider Department 08/29/18 1:30 PM DEBBIE KATZ (PA) During your visit today, we recorded the following information about you: Debbie Katz PA-C 08/29/2018 2:01 PM Signed The following instructions are important for you related to your office visit today with the [facility] General Surgeons. INSTRUCTIONS FOLLOWING A POLYP FOUND AT COLONOSCOPY You were found to have an adenomatous colon polyp. I recommend you undergo repeat endoscopy in 5 years. If you note bleeding, change in bowel habits, or other suspicious colon related symptoms before that time, those symptoms should be evaluated as necessary. If you have any difficulties or concerns, you should contact our office immediately. and INSTRUCTIONS FOR DIVERTICULA I recommend that you continue on a high-fiber diet. Avoidance of seeds is not necessary in general. Recent studies have demonstrated that seeds do not increase you risk of developing diverticulitis. If specific foods tend to cause discomfort, those should be avoided. Signs of diverticulitis (inflammation of diverticulosis) include - abdominal distention, fever, abdominal pain typically in the left lower quadrant, and changes of bowel habits. If these symptoms appear, you are instructed to contact our office immediately. If you note any additional difficulties or concerns, you should contact our office immediately. If you note any additional difficulties, questions, or concerns, you should contact our office immediately @ [phone] and ask to be transferred to the General Surgery department. Debbie Katz PA-C 09/04/2018 6:17 PM Signed FOLLOW UP VISIT - ENDOSCOPY NAME: Viridiana Rico [facility] NO.: [id number] DATE OF SERVICE: 08/29/2018 : 1960 REFERRING PHYSICIAN: David Pimentel MD Viridiana is a patient I am following with Dr. Trotter for screening colonoscopy and history of chronic right lower quadrant abdominal pain associated with constipation. Dr. Trotter performed lower endoscopy on 08/16/18. The patient was found to have a 4 mm polyp in the recto-sigmoid colon which was removed, diverticolosis and otherwise normal appearing colon. Random biopsies were also taken due to her history of abdominal pain. Pathology demonstrated: FINAL DIAGNOSIS 1. Colon, random biopsies (A) - Colonic mucosa with no significant diagnostic alterations. 2. Rectum, polypectomy (B) - Tubular adenoma with thermal artifact. ? AEB/glw 08/19/2018 COMMENT Morphologic features of lymphocytic and collagenous colitis are not identified in the colon. There is no morphologic evidence of acute colitis. The patient notes no complaints since the procedure. Has noted improvement her abdominal symptoms since bowel prep and endoscopy, denies complaints currently. VITALS: There were no vitals taken for this visit. On examination, the abdomen is benign. Assessment IMPRESSION: constipation, history of right lower quadrant abdominal pain. Adenomatous colon polyp removed, random biopsies unremarkable PLAN: The operative findings and pathology were discussed with the patient, and the patient had the opportunity to ask questions and have questions answered. If the patient notes any problems or changes in bowel function, the patient should contact me immediately. Otherwise I recommend follow up endoscopy in 5 years-HM updated and recall generated. I have also recommended high-fiber diet and/or daily fiber supplementation. Patient verbalized understanding of all above and agreed with the plan Diagnoses: (D12.6) Tubular adenoma of colon (primary encounter diagnosis) (K59.09) Other constipation Debbie Katz PA-C Referring Provider: DAVID PIMENTEL [[id number]] Allergies As of Date: 08/29/2018 Noted Allergy Reaction AMPICILLIN 05/22/2005 ERYTHROMYCIN 05/22/2005 seasonal allergies [Other] 09/25/2005 Date Reviewed: 08/29/2018 Reviewed by: Danielito Beard LPN - Fully Assessed Reason for Visit: Post Op [174] Cmt: F/u colonoscopy Primary Visit Diagnosis:Tubular adenoma of colon [D12.6] Other Visit Diagnosis:Other constipation [K59.09] Prescriptions as of 08/29/2018 Sig: TRIAMCINOLONE ACETONIDE 0.1 %* Apply 1 application to affect* SCOPOLAMINE 1 MG OVER 3 DAYS * Apply 1 Patch as directed frank* CONJUGATED ESTROGENS 0.625 MG* Use as directed twice a week * [id number] * Take 1 tablet by mouth once d* Problem List As Of Date 08/29/2018 Noted Resolved DIFFUS CYSTIC MASTOPATHY [N60.19] INVALID FOR* ATROPHIC VAGINITIS [N95.2] INVALID FOR* Osteoporosis [M81.0] INVALID FOR* More... More... Routine gynecological examination [Z01.419] INVALID FOR*03/01/2012 Class: Chronic More... LBBB (Left Bundle Branch Block) [I44.7] INVALID FOR* More... Abdominal pain, right upper quadrant [R10.11] INVALID FOR* Lumbosacral spondylosis without myelopathy [M47*INVALID FOR* Backache, unspecified [M54.9] INVALID FOR* Other instructions from your clinician: The following instructions are important for you related to your office visit today with the [facility] General Surgeons. INSTRUCTIONS FOLLOWING A POLYP FOUND AT COLONOSCOPY You were found to have an adenomatous colon polyp. I recommend you undergo repeat endoscopy in 5 years. If you note bleeding, change in bowel habits, or other suspicious colon related symptoms before that time, those symptoms should be evaluated as necessary. If you have any difficulties or concerns, you should contact our office immediately. and INSTRUCTIONS FOR DIVERTICULA I recommend that you continue on a high-fiber diet. Avoidance of seeds is not necessary in general. Recent studies have demonstrated that seeds do not increase you risk of developing diverticulitis. If specific foods tend to cause discomfort, those should be avoided. Signs of diverticulitis (inflammation of diverticulosis) include - abdominal distention, fever, abdominal pain typically in the left lower quadrant, and changes of bowel habits. If these symptoms appear, you are instructed to contact our office immediately. If you note any additional difficulties or concerns, you should contact our office immediately. If you note any additional difficulties, questions, or concerns, you should contact our office immediately @ [phone] and ask to be transferred to the General Surgery department. Follow-up and Disposition History Recorded Encounter Status:Closed by DEBBIE KATZ PA-C on 09/04/18 NURSING PROG Observed: 08/16/2018 Status: COMPLETED Source: [place] 8:18 AM [facility] REPOSITORY HNO ID: [id number] Author: Michell Henriquez RN Service: (none) Author Type: Registered Nurse Type: Nursing Progress Note Filed: 08/16/2018 9:38 AM Note Text: Patient did not experience a fall prior to discharge. Patient did not experience a burn prior to discharge. Michell Henriquez RN NURSING PROG Observed: 08/16/2018 Status: COMPLETED Source: [place] 8:00 AM [facility] REPOSITORY HNO ID: [id number] Author: Michell Henriquez RN Service: (none) Author Type: Registered Nurse Type: Nursing Progress Note Filed: 08/16/2018 9:37 AM Note Text: Pt sitting up in bed tolerating snack and drink. Denies pain or nausea. at bedside. Abd soft and nondistended. No complaints. Still groggy. Michell Henriquez RN NURSING PROG Observed: 08/16/2018 Status: COMPLETED Source: [place] 7:20 AM [facility] REPOSITORY HNO ID: [id number] Author: Michell MattaRnGustavo Henriquez RN Service: (none) Author Type: Registered Nurse Type: Nursing Progress Note Filed: 08/16/2018 9:36 AM Note Text: Dr. Trotter at bedside and spoke with pt's . Pt very, very sleepy. Michell Henriquez RN PT ED Observed: 08/16/2018 Status: COMPLETED Source: [place] 7:19 AM [facility] REPOSITORY HNO ID: [id number] Author: Michell MattaRnGustavo Henriquez RN Service: (none) Author Type: Registered Nurse Type: Patient Education Filed: 08/16/2018 7:20 AM Note Text: POST OP LEARNING RESPONSE INSTRUCTION PROVIDED TO: Patient and Spouse METHOD OF INSTRUCTION: Individual instruction Written instruction - handouts Verbal instruction PATIENT / FAMILY RESPONSE: Verbalizes understanding of: MEDICAL REGIMEN-Importance of following prescribed medical regimen POST-PROCEDURE INSTRUCTIONS-Correct actions to take to reduce post procedure complications WORSENING CONDITION-Signs and symptoms of a worsening condition that warrant a call to the physician FOLLOW-UP PLAN: Patient instructed to call with any further issues Follow up phone call. Contact information given. SUPPLEMENTAL MATERIAL: Procedure discharge instructions REFERRAL (RECOMMENDATION): None Electronically Signed By: Michell Henriquez RN In Department: AMBULATORY SURGERY NURSING PROG Observed: 08/16/2018 Status: COMPLETED Source: [place] 7:12 AM [facility] REPOSITORY HNO ID: [id number] Author: Zaina Garcia RN Service: Nursing Author Type: Registered Nurse Type: Nursing Progress Note Filed: 08/16/2018 7:12 AM Note Text: Patient did not experience a fall within the Intraoperative area. Patient did not experience a burn within the Intraoperative area. Zaina Garcia RN HISTORY PHYSICAL Observed: 08/16/2018 Status: COMPLETED Source: [place] 6:40 AM [facility] REPOSITORY HNO ID: [id number] Author: Abdulaziz Trotter Service: General Surgery Author Type: Physician Type: HANDP Filed: 08/16/2018 6:40 AM Note Text: HISTORY AND PHYSICAL ? Viridiana Bee 1960 ? REFERRING PHYSICIAN: David Pimentel MD ? CHIEF COMPLAINT: New Patient and Abdominal Pain ? HPI: The patient is a 58 year old female referred for endoscopy. Viridiana notes a history of intermittent right lower quadrant discomfort x at least 1 year. She relates the pain to when she is constipated and needs to have a bowel movement. Pain sometimes radiates into her lower back. Pain is typically relieved after having a bowel movement. She has been using miralax and stool softeners with some relief. Patient was recently evaluated by Demi Wallace CNP for the abdominal pain and had a pelvic ultrasound which showed no acute findings. ? Patient notes that in the she was experiencing similar symptoms in the pelvic area and ended up having exploratory surgery with lysis of adhesions-states had had several past surgeries including hysterectomy, oophorectomy and was found to have multiple adhesions to bladder at that time. She wonders if her right lower abdominal symptoms could be related to adhesions with her bowel. She denies any episodes of small bowel obstruction in the past. Denies nausea, vomiting, bloating, blood in stools or dark stools. ? Patient was actually already scheduled for colonoscopy as Open Access, to be performed by Dr. Trotter on 08/16/18. Patient's past medical history is significant for left bundle branch block, hemorrhoids, osteoporosis. Patient denies any chest pain, shortness of breath or recent hospitalizations. She denies any problems with sedation in the past. ? ? PAST MEDICAL HISTORY PAST MEDICAL HISTORY Diagnosis Date - Diffuse cystic mastopathy ? - Internal hemorrhoids without mention of complication ? - Left bundle branch block 09/2009 - [facility] - PAST MEDICAL HISTORY OF ? ? lower vit D - [facility] - PAST MEDICAL HISTORY OF ? ? count low borderline osteoporsis - Shingles ? ? January 2008 ? ? PAST SURGICAL HISTORY PAST SURGICAL HISTORY Procedure Laterality Date - DELIVERY ONLY ? 1983 - COLONOSCOP W/ OR W/O [facility] SPEC ? 06/12/08 - ECHO GUIDE FOR BIOPSY ? 10/03/05 ? U/S [facility]NA Left breast cysts x 3 - FOOT LEFT OP SURGERY ? 10/2009 ? Dr. Vega, bilateral - PAST SURGICAL HISTORY OF ? ? ? jaw fracture - REMOVAL OF OVARY(S) ? 1986 ? bilateral - TOTAL ABDOM HYSTERECTOMY ? 1983 ? ? ? CURRENT MEDICATIONS ? Current Outpatient Prescriptions: conjugated estrogens (PREMARIN) vaginal cream Use as directed twice a week Wfacjdtfubiya-Bexcnnat-Ioqrgo (CENTRUM SILVER) ORAL Tab Take 1 tablet by mouth once daily. scopolamine (TRANSDERM-SCOP) 1 mg over 3 days Apply 1 Patch as directed every 72 hours. Apply patch to skin behind ear 4hrs prior to travel. triamcinolone acetonide (KENALOG) 0.1 % cream Apply 1 application to affected area three times daily. Apply sparingly to area for rash/itching. ? No current facility-administered medications for this visit. ? ALLERGIES: Ampicillin; Erythromycin; Seasonal Allergies [Other] ? PERSONAL HISTORY: SOCIAL HISTORY Social History Marital status: Spouse name: winifred Years of education: 14 Number of children: 3 ? Occupational History Occupation Employer Comment [email or web address] ? Social History Main Topics Smoking status: Never Smoker ? Smokeless tobacco: Never Used Alcohol use: No Drug use: No Sexual activity: Yes Partners with: Male control/protection: Surgical Comment: hysterectomy ? ? FAMILY HISTORY: FAMILY HISTORY FAMILY HISTORY Problem Relation Age of Onset - Cancer Mother ? ? lymphoma - Heart Father ? - Diabetes Paternal Grandmother ? ? late in life, obese - GI Brother ? ? colon problems in family - GI Sister ? - Coronary Artery Disease Other ? ? none ? ? REVIEW OF SYMPTOMS: The review of systems data was entered by the nurse and reviewed by me ? Nursing Notes: Marbella Kumar Ma 08/08/2018 9:20 AM Signed REVIEW OF SYSTEMS: General: The patient denies fatigue, denies weight loss, denies weight gain, denies feeling hot, and denies feelings of cold. Eyes: The patient denies glaucoma, denies eye injury/surgery, wears glasses or contacts. Ear/Nose/Throat: The patient denies allergies, NOTES hayfever, denies ear infections, and denies bloody noses. Cardiovascular: The patient denies chest pain, denies heart disease, denies high blood pressure,denies cardiac stent, denies prior heart attack, denies irregular heart beat, denies high cholesterol, denies poor circulation, denies heart failure, other cardiac issues, denies claudication, denies cold feet, denies peripheral arterial stent. Respiratory: The patient denies tuberculosis, denies pneumonia, denies frequent cough, denies pulmonary embolism, denies shortness of breath, and denies coughing up blood. Gastrointestinal: The patient denies difficulty swallowing, denies acid reflux, denies ulcers, denies vomiting, denies jaundice/hepatitis, denies gallbladder problems, denies black or tarry stools, denies hemorrhoids, denies bleeding from rectum, denies diverticulitis, denies constipation, denies diarrhea, denies loss of stool control, and denies hernias. Kidney/Bladder: The patient denies kidney stones, NOTES urine infections, and denies bloody urine. Skin: The patient NOTES a history of skin cancer, denies bleeding/changing moles, and denies a history of skin rash. Neurologic: The patient denies a history of epilepsy/convulsions, denies headaches, denies head/spinal injuries, and denies stroke/TIA. Psychiatric: The patient denies psychiatric medications, denies depression, and denies voices, denies substance abuse. Endocrine: The patient denies thyroid disorders, denies diabetes, and denies hormonal problems. Hematologic: The patient denies a history of bruising, denies bleeding, and denies anemia, denies blood clots. Infections: The patient denies a history of measles and mumps, denies rheumatic fever, and denies sexually transmitted diseases. Musculoskeletal: The patient NOTES back pain/injury, denies back problems, denies sciatica, denies knee/foot trouble, denies arthritis, or denies gout. ? ? When was patient's last Mammogram screening? 07/2018 ? Last Colonoscopy: 2007 ? Marbella Kumar Ma I have confirmed and edited as necessary, the PFSH and ROS obtained by others. ? PHYSICAL EXAMINATION: ? General: The patient is 58 year old female, well nourished, well hydrated in no acute distress. The patient is oriented to time, place, and person. ? VITALS: Blood pressure 112/66, pulse 80, temperature 36.4 ?C (97.5 ?F), height 167.6 cm (5' 6), weight 76.2 kg (168 lb), SpO2 99 %. Body mass index is 27.12 kg/m?. ? HEENT: Normal cephalic, ataumatic, pupils are equally round, sclera are anicteric, mucous membranes are moist, oropharynx is clear. Neck has no masses, asymmetry or lymphadenopathy. ? Respiratory: Clear to auscultation and percussion. Normal respiratory excursion and pattern. ? Cardiac: Examination is regular rate and rhythm. ? Abdominal exam: Soft, nontender, with no palpable masses. No hepatosplenomegaly. No palpable hernias. ? Rectal exam: exam deferred ? Extremities: no clubbing, cyanosis or edema. No adenopathy. ? Other: ? LABORATORY VALUES: As Noted ? RADIOLOGIC STUDIES: As Noted ? ? Assessment IMPRESSION: encounter for colonoscopy. History of chronic right lower quadrant pain-recommend random biopsies ? PLAN: I have reviewed my findings with the surgeon. Proceed with colonoscopy as scheduled, would also recommend random biopsies be performed at that time due to her history of abdominal pain. We discussed the risks and benefits of the planned endoscopy. I have informed the patient that complications can occur including failure to complete the endoscopy and perforation. The patient had the opportunity to ask questions concerning the planned endoscopy. My staff has also explained the procedure to the patient in understandable terms and has given the patient printed material concerning the procedure. The patient freely consents to surgery. ? I plan to use golytely bowel preparation for endoscopy ? Diagnoses: (R10.31) Right lower quadrant abdominal pain (primary encounter diagnosis) (Z86.79) History of left bundle branch block ? ? Return to Clinic: The patient is instructed to follow-up with me after the colonoscopy when Dr. Trotter is also in office ? Patient verbalized understanding of above and agreed with the plan ? ? Debbie Katz PA-C NURSING PROG Observed: 08/16/2018 Status: COMPLETED Source: E[place]RATA 6:37 AM [facility] REPOSITORY HNO ID: [id number] Author: Michell (Rn) FATOU Henriquez Service: (none) Author Type: Registered Nurse Type: Nursing Progress Note Filed: 08/16/2018 6:39 AM Note Text: [facility] [place] [facility] PRE-OP NURSING HAND OFF NOTE SBAR Hand off given to Zaina Garcia RN. Hand off was communicated verbally and at the patient's bedside and all questions were answered. FALLS/HOOVER Patient did not experience a fall within the Preoperative area. Patient did not experience a burn within the Preoperative area. Michell Henriquez RN PT ED Observed: 08/16/2018 Status: COMPLETED Source: E[place] 6:25 AM [facility] REPOSITORY HNO ID: [id number] Author: Michell (Rn) Florence, RN Service: (none) Author Type: Registered Nurse Type: Patient Education Filed: 08/16/2018 6:51 AM Note Text: PRE OP LEARNING ASSESSMENT PROCEDURE/SURGERY: GI PROCEDURES: Colonoscopy READINESS TO LEARN COGNITIVE ABILITY: Alert and oriented MOTIVATION TO LEARN: Eager FAMILY SUPPORT: High - Very involved in pt care PATIENT LEARNS BEST BY: Multiple Methods FACTORS AFFECTING LEARNING: None PHYSICAL LIMITATIONS AFFECTING LEARNING: None Electronically Signed By: Michell Henriquez RN In Department: AMBULATORY SURGERY SURGICAL PATHOLOGY Observed: 08/16/2018 Status: F Source: EPHRATA 12:00 AM [facility] REPOSITORY Specimen originated from [facility] Specimen #: [id number] Submitting Physician: ABDULAZIZ TROTTER ([id number]) FINAL DIAGNOSIS 1. Colon, random biopsies (A) - Colonic mucosa with no significant diagnostic alterations. 2. Rectum, polypectomy (B) - Tubular adenoma with thermal artifact. AEB/doc 08/19/2018 COMMENT Morphologic features of lymphocytic and collagenous colitis are not identified in the colon. There is no morphologic evidence of acute colitis. Jaci Tracy M.D. (Electronic Signature) SPECIMEN SUBMITTED A: RANDOM COLON, BIOPSY B: RECTAL POLYP CLINICAL DATA Z12.11 B: HOT SNARE GROSS DESCRIPTION A. Received in formalin are two pieces of singh, soft tissue aggregating to 0.5 x 0.3 x 0.2 cm. Totally submitted in one cassette. B. Received in formalin are multiple pieces of singh, soft tissue aggregating to 0.6 x 0.2 x 0.2 cm. Totally submitted in one cassette. Gross examination performed at [facility], [address] [place] [address] 08/17/2018 12:24:17 AM Date of Report: 08/19/2018 Date of Procedure: 08/16/2018 Date of Receipt: 08/16/2018 Submitted by: ABDULAZIZ TROTTER ([id number]) Location: [id number] Diagnostic interpretation performed at [facility], [address] [place] [address]. PROGRESS Observed: 08/08/2018 Status: COMPLETED Source: EPHRATA 9:05 AM [facility] REPOSITORY HNO ID: [id number] Author: Debbie Katz (Pa) Service: (none) Author Type: Physician Senior Analyst Type: Progress Notes Filed: 08/12/2018 1:32 PM Note Text: HISTORY AND PHYSICAL Viridiana Rico Radhika 1960 REFERRING PHYSICIAN: David Pimentel MD CHIEF COMPLAINT: New Patient and Abdominal Pain HPI: The patient is a 58 year old female referred for endoscopy. Viridiana notes a history of intermittent right lower quadrant discomfort x at least 1 year. She relates the pain to when she is constipated and needs to have a bowel movement. Pain sometimes radiates into her lower back. Pain is typically relieved after having a bowel movement. She has been using miralax and stool softeners with some relief. Patient was recently evaluated by Demi Wallace CNP for the abdominal pain and had a pelvic ultrasound which showed no acute findings. Patient notes that in the she was experiencing similar symptoms in the pelvic area and ended up having exploratory surgery with lysis of adhesions-states had had several past surgeries including hysterectomy, oophorectomy and was found to have multiple adhesions to bladder at that time. She wonders if her right lower abdominal symptoms could be related to adhesions with her bowel. She denies any episodes of small bowel obstruction in the past. Denies nausea, vomiting, bloating, blood in stools or dark stools. Patient was actually already scheduled for colonoscopy as Open Access, to be performed by Dr. Trotter on 08/16/18. Patient's past medical history is significant for left bundle branch block, hemorrhoids, osteoporosis. Patient denies any chest pain, shortness of breath or recent hospitalizations. She denies any problems with sedation in the past. PAST MEDICAL HISTORY Diagnosis Date - Diffuse cystic mastopathy - Internal hemorrhoids without mention of complication - Left bundle branch block 09/2009 - PMH - PAST MEDICAL HISTORY OF lower vit D - PMH - PAST MEDICAL HISTORY OF count low borderline osteoporsis - Shingles January 2008 PAST SURGICAL HISTORY Procedure Laterality Date - DELIVERY ONLY 1983 - COLONOSCOP W/ OR W/O [facility] SPEC 06/12/08 - ECHO GUIDE FOR BIOPSY 10/03/05 U/S FNA Left breast cysts x 3 - FOOT LEFT OP SURGERY 10/2009 Dr. Vega, bilateral - PAST SURGICAL HISTORY OF jaw fracture - REMOVAL OF OVARY(S) 1986 bilateral - TOTAL ABDOM HYSTERECTOMY 1983 Current Outpatient Prescriptions: conjugated estrogens (PREMARIN) vaginal cream Use as directed twice a week Ijquihlvroocg-Ntqvkcsv-Kmcqnm (CENTRUM SILVER) ORAL Tab Take 1 tablet by mouth once daily. scopolamine (TRANSDERM-SCOP) 1 mg over 3 days Apply 1 Patch as directed every 72 hours. Apply patch to skin behind ear 4hrs prior to travel. triamcinolone acetonide (KENALOG) 0.1 % cream Apply 1 application to affected area three times daily. Apply sparingly to area for rash/itching. No current facility-administered medications for this visit. ALLERGIES: Ampicillin; Erythromycin; Seasonal Allergies [Other] PERSONAL HISTORY: Social History Marital status: Spouse name: winifred Years of education: 14 Number of children: 3 Occupational History Occupation Employer Comment [employer]* [employer] Social History Main Topics Smoking status: Never Smoker Smokeless tobacco: Never Used Alcohol use: No Drug use: No Sexual activity: Yes Partners with: Male control/protection: Surgical Comment: hysterectomy FAMILY HISTORY: FAMILY HISTORY Problem Relation Age of Onset - Cancer Mother lymphoma - Heart Father - Diabetes Paternal Grandmother late in life, obese - GI Brother colon problems in family - GI Sister - Coronary Artery Disease Other none REVIEW OF SYMPTOMS: The review of systems data was entered by the nurse and reviewed by hi Nursing Notes: Marbella Kumar Ma 08/08/2018 9:20 AM Signed REVIEW OF SYSTEMS: General: The patient denies fatigue, denies weight loss, denies weight gain, denies feeling hot, and denies feelings of cold. Eyes: The patient denies glaucoma, denies eye injury/surgery, wears glasses or contacts. Ear/Nose/Throat: The patient denies allergies, NOTES hayfever, denies ear infections, and denies bloody noses. Cardiovascular: The patient denies chest pain, denies heart disease, denies high blood pressure,denies cardiac stent, denies prior heart attack, denies irregular heart beat, denies high cholesterol, denies poor circulation, denies heart failure, other cardiac issues, denies claudication, denies cold feet, denies peripheral arterial stent. Respiratory: The patient denies tuberculosis, denies pneumonia, denies frequent cough, denies pulmonary embolism, denies shortness of breath, and denies coughing up blood. Gastrointestinal: The patient denies difficulty swallowing, denies acid reflux, denies ulcers, denies vomiting, denies jaundice/hepatitis, denies gallbladder problems, denies black or tarry stools, denies hemorrhoids, denies bleeding from rectum, denies diverticulitis, denies constipation, denies diarrhea, denies loss of stool control, and denies hernias. Kidney/Bladder: The patient denies kidney stones, NOTES urine infections, and denies bloody urine. Skin: The patient NOTES a history of skin cancer, denies bleeding/changing moles, and denies a history of skin rash. Neurologic: The patient denies a history of epilepsy/convulsions, denies headaches, denies head/spinal injuries, and denies stroke/TIA. Psychiatric: The patient denies psychiatric medications, denies depression, and denies voices, denies substance abuse. Endocrine: The patient denies thyroid disorders, denies diabetes, and denies hormonal problems. Hematologic: The patient denies a history of bruising, denies bleeding, and denies anemia, denies blood clots. Infections: The patient denies a history of measles and mumps, denies rheumatic fever, and denies sexually transmitted diseases. Musculoskeletal: The patient NOTES back pain/injury, denies back problems, denies sciatica, denies knee/foot trouble, denies arthritis, or denies gout. When was patient's last Mammogram screening? 07/2018 Last Colonoscopy: 2007 Marbella Kumar Ma I have confirmed and edited as necessary, the PFSH and ROS obtained by others. PHYSICAL EXAMINATION: General: The patient is 58 year old female, well nourished, well hydrated in no acute distress. The patient is oriented to time, place, and person. VITALS: Blood pressure 112/66, pulse 80, temperature 36.4 ?C (97.5 ?F), height 167.6 cm (5' 6), weight 76.2 kg (168 lb), SpO2 99 %. Body mass index is 27.12 kg/m?. HEENT: Normal cephalic, ataumatic, pupils are equally round, sclera are anicteric, mucous membranes are moist, oropharynx is clear. Neck has no masses, asymmetry or lymphadenopathy. Respiratory: Clear to auscultation and percussion. Normal respiratory excursion and pattern. Cardiac: Examination is regular rate and rhythm. Abdominal exam: Soft, nontender, with no palpable masses. No hepatosplenomegaly. No palpable hernias. Rectal exam: exam deferred Extremities: no clubbing, cyanosis or edema. No adenopathy. Other: LABORATORY VALUES: As Noted RADIOLOGIC STUDIES: As Noted Assessment IMPRESSION: encounter for colonoscopy. History of chronic right lower quadrant pain-recommend random biopsies PLAN: I have reviewed my findings with the surgeon. Proceed with colonoscopy as scheduled, would also recommend random biopsies be performed at that time due to her history of abdominal pain. We discussed the risks and benefits of the planned endoscopy. I have informed the patient that complications can occur including failure to complete the endoscopy and perforation. The patient had the opportunity to ask questions concerning the planned endoscopy. My staff has also explained the procedure to the patient in understandable terms and has given the patient printed material concerning the procedure. The patient freely consents to surgery. I plan to use golytely bowel preparation for endoscopy Diagnoses: (R10.31) Right lower quadrant abdominal pain (primary encounter diagnosis) (Z86.79) History of left bundle branch block Return to Clinic: The patient is instructed to follow-up with me after the colonoscopy when Dr. Trotter is also in office Patient verbalized understanding of above and agreed with the plan YUMI Marshall Observed: 08/08/2018 Status: COMPLETED Source: NARVAEZ 8:30 AM [facility] REPOSITORY Office Visit (GENSWS) VIRIDIANA BEE ([id number]) 1960 F Date Time Provider Department 08/08/18 8:30 AM DEBBIE KATZ (PA) During your visit today, we recorded the following information about you: Temperature Pulse Blood pressure Weight 97.5 degrees 80/minute 112/66 76.2 kg Height 1.676 m Debbie Katz PA-C 08/12/2018 1:32 PM Signed HISTORY AND PHYSICAL Viridiana Rico Radhika 1960 REFERRING PHYSICIAN: David Pimentel MD CHIEF COMPLAINT: New Patient and Abdominal Pain HPI: The patient is a 58 year old female referred for endoscopy. Viridiana notes a history of intermittent right lower quadrant discomfort x at least 1 year. She relates the pain to when she is constipated and needs to have a bowel movement. Pain sometimes radiates into her lower back. Pain is typically relieved after having a bowel movement. She has been using miralax and stool softeners with some relief. Patient was recently evaluated by Demi Wallace CNP for the abdominal pain and had a pelvic ultrasound which showed no acute findings. Patient notes that in the she was experiencing similar symptoms in the pelvic area and ended up having exploratory surgery with lysis of adhesions-states had had several past surgeries including hysterectomy, oophorectomy and was found to have multiple adhesions to bladder at that time. She wonders if her right lower abdominal symptoms could be related to adhesions with her bowel. She denies any episodes of small bowel obstruction in the past. Denies nausea, vomiting, bloating, blood in stools or dark stools. Patient was actually already scheduled for colonoscopy as Open Access, to be performed by Dr. Trotter on 08/16/18. Patient's past medical history is significant for left bundle branch block, hemorrhoids, osteoporosis. Patient denies any chest pain, shortness of breath or recent hospitalizations. She denies any problems with sedation in the past. PAST MEDICAL HISTORY Diagnosis Date - Diffuse cystic mastopathy - Internal hemorrhoids without mention of complication - Left bundle branch block 09/2009 - PMH - PAST MEDICAL HISTORY OF lower vit D - PMH - PAST MEDICAL HISTORY OF count low borderline osteoporsis - Shingles January 2008 PAST SURGICAL HISTORY Procedure Laterality Date - DELIVERY ONLY 1983 - COLONOSCOP W/ OR W/O [facility] SPEC 06/12/08 - ECHO GUIDE FOR BIOPSY 10/03/05 U/S FNA Left breast cysts x 3 - FOOT LEFT OP SURGERY 10/2009 Dr. Vega, bilateral - PAST SURGICAL HISTORY OF jaw fracture - REMOVAL OF OVARY(S) 1986 bilateral - TOTAL ABDOM HYSTERECTOMY 1983 Current Outpatient Prescriptions: conjugated estrogens (PREMARIN) vaginal cream Use as directed twice a week Psxfhngkoxfwd-Jjzcwbza-Aagudn (CENTRUM SILVER) ORAL Tab Take 1 tablet by mouth once daily. scopolamine (TRANSDERM-SCOP) 1 mg over 3 days Apply 1 Patch as directed every 72 hours. Apply patch to skin behind ear 4hrs prior to travel. triamcinolone acetonide (KENALOG) 0.1 % cream Apply 1 application to affected area three times daily. Apply sparingly to area for rash/itching. No current facility-administered medications for this visit. ALLERGIES: Ampicillin; Erythromycin; Seasonal Allergies [Other] PERSONAL HISTORY: Social History Marital status: Spouse name: winifred Years of education: 14 Number of children: 3 Occupational History Occupation Employer Comment [employer]* [employer] Social History Main Topics Smoking status: Never Smoker Smokeless tobacco: Never Used Alcohol use: No Drug use: No Sexual activity: Yes Partners with: Male control/protection: Surgical Comment: hysterectomy FAMILY HISTORY: FAMILY HISTORY Problem Relation Age of Onset - Cancer Mother lymphoma - Heart Father - Diabetes Paternal Grandmother late in life, obese - GI Brother colon problems in family - GI Sister - Coronary Artery Disease Other none REVIEW OF SYMPTOMS: The review of systems data was entered by the nurse and reviewed by hi Nursing Notes: Marbella Kumar Ma 08/08/2018 9:20 AM Signed REVIEW OF SYSTEMS: General: The patient denies fatigue, denies weight loss, denies weight gain, denies feeling hot, and denies feelings of cold. Eyes: The patient denies glaucoma, denies eye injury/surgery, wears glasses or contacts. Ear/Nose/Throat: The patient denies allergies, NOTES hayfever, denies ear infections, and denies bloody noses. Cardiovascular: The patient denies chest pain, denies heart disease, denies high blood pressure,denies cardiac stent, denies prior heart attack, denies irregular heart beat, denies high cholesterol, denies poor circulation, denies heart failure, other cardiac issues, denies claudication, denies cold feet, denies peripheral arterial stent. Respiratory: The patient denies tuberculosis, denies pneumonia, denies frequent cough, denies pulmonary embolism, denies shortness of breath, and denies coughing up blood. Gastrointestinal: The patient denies difficulty swallowing, denies acid reflux, denies ulcers, denies vomiting, denies jaundice/hepatitis, denies gallbladder problems, denies black or tarry stools, denies hemorrhoids, denies bleeding from rectum, denies diverticulitis, denies constipation, denies diarrhea, denies loss of stool control, and denies hernias. Kidney/Bladder: The patient denies kidney stones, NOTES urine infections, and denies bloody urine. Skin: The patient NOTES a history of skin cancer, denies bleeding/changing moles, and denies a history of skin rash. Neurologic: The patient denies a history of epilepsy/convulsions, denies headaches, denies head/spinal injuries, and denies stroke/TIA. Psychiatric: The patient denies psychiatric medications, denies depression, and denies voices, denies substance abuse. Endocrine: The patient denies thyroid disorders, denies diabetes, and denies hormonal problems. Hematologic: The patient denies a history of bruising, denies bleeding, and denies anemia, denies blood clots. Infections: The patient denies a history of measles and mumps, denies rheumatic fever, and denies sexually transmitted diseases. Musculoskeletal: The patient NOTES back pain/injury, denies back problems, denies sciatica, denies knee/foot trouble, denies arthritis, or denies gout. When was patient's last Mammogram screening? 07/2018 Last Colonoscopy: 2007 Marbella Kumra Ma I have confirmed and edited as necessary, the PFSH and ROS obtained by others. PHYSICAL EXAMINATION: General: The patient is 58 year old female, well nourished, well hydrated in no acute distress. The patient is oriented to time, place, and person. VITALS: Blood pressure 112/66, pulse 80, temperature 36.4 ?C (97.5 ?F), height 167.6 cm (5' 6), weight 76.2 kg (168 lb), SpO2 99 %. Body mass index is 27.12 kg/m?. HEENT: Normal cephalic, ataumatic, pupils are equally round, sclera are anicteric, mucous membranes are moist, oropharynx is clear. Neck has no masses, asymmetry or lymphadenopathy. Respiratory: Clear to auscultation and percussion. Normal respiratory excursion and pattern. Cardiac: Examination is regular rate and rhythm. Abdominal exam: Soft, nontender, with no palpable masses. No hepatosplenomegaly. No palpable hernias. Rectal exam: exam deferred Extremities: no clubbing, cyanosis or edema. No adenopathy. Other: LABORATORY VALUES: As Noted RADIOLOGIC STUDIES: As Noted Assessment IMPRESSION: encounter for colonoscopy. History of chronic right lower quadrant pain-recommend random biopsies PLAN: I have reviewed my findings with the surgeon. Proceed with colonoscopy as scheduled, would also recommend random biopsies be performed at that time due to her history of abdominal pain. We discussed the risks and benefits of the planned endoscopy. I have informed the patient that complications can occur including failure to complete the endoscopy and perforation. The patient had the opportunity to ask questions concerning the planned endoscopy. My staff has also explained the procedure to the patient in understandable terms and has given the patient printed material concerning the procedure. The patient freely consents to surgery. I plan to use golytely bowel preparation for endoscopy Diagnoses: (R10.31) Right lower quadrant abdominal pain (primary encounter diagnosis) (Z86.79) History of left bundle branch block Return to Clinic: The patient is instructed to follow-up with me after the colonoscopy when Dr. Trotter is also in office Patient verbalized understanding of above and agreed with the plan YUMI Marshall Ma 08/08/2018 9:20 AM Signed REVIEW OF SYSTEMS: General: The patient denies fatigue, denies weight loss, denies weight gain, denies feeling hot, and denies feelings of cold. Eyes: The patient denies glaucoma, denies eye injury/surgery, wears glasses or contacts. Ear/Nose/Throat: The patient denies allergies, NOTES hayfever, denies ear infections, and denies bloody noses. Cardiovascular: The patient denies chest pain, denies heart disease, denies high blood pressure,denies cardiac stent, denies prior heart attack, denies irregular heart beat, denies high cholesterol, denies poor circulation, denies heart failure, other cardiac issues, denies claudication, denies cold feet, denies peripheral arterial stent. Respiratory: The patient denies tuberculosis, denies pneumonia, denies frequent cough, denies pulmonary embolism, denies shortness of breath, and denies coughing up blood. Gastrointestinal: The patient denies difficulty swallowing, denies acid reflux, denies ulcers, denies vomiting, denies jaundice/hepatitis, denies gallbladder problems, denies black or tarry stools, denies hemorrhoids, denies bleeding from rectum, denies diverticulitis, denies constipation, denies diarrhea, denies loss of stool control, and denies hernias. Kidney/Bladder: The patient denies kidney stones, NOTES urine infections, and denies bloody urine. Skin: The patient NOTES a history of skin cancer, denies bleeding/changing moles, and denies a history of skin rash. Neurologic: The patient denies a history of epilepsy/convulsions, denies headaches, denies head/spinal injuries, and denies stroke/TIA. Psychiatric: The patient denies psychiatric medications, denies depression, and denies voices, denies substance abuse. Endocrine: The patient denies thyroid disorders, denies diabetes, and denies hormonal problems. Hematologic: The patient denies a history of bruising, denies bleeding, and denies anemia, denies blood clots. Infections: The patient denies a history of measles and mumps, denies rheumatic fever, and denies sexually transmitted diseases. Musculoskeletal: The patient NOTES back pain/injury, denies back problems, denies sciatica, denies knee/foot trouble, denies arthritis, or denies gout. When was patient's last Mammogram screening? 07/2018 Last Colonoscopy: 2007 Marbella Kumar Ma Referring Provider: DAVID PIMENTEL [[id number]] Allergies As of Date: 08/08/2018 Noted Allergy Reaction AMPICILLIN 05/22/2005 ERYTHROMYCIN 05/22/2005 seasonal allergies [Other] 09/25/2005 Date Reviewed: 08/08/2018 Reviewed by: Debbie Tate) [place] - Fully Assessed Reason for Visit: New Patient [172] Abdominal Pain [1] Primary Visit Diagnosis:Right lower quadrant abdominal pain [R10.31] Other Visit Diagnosis:History of left bundle branch block [Z86.79] Prescriptions as of 08/08/2018 Sig: CONJUGATED ESTROGENS 0.625 MG* Use as directed twice a week * GPLUHIBMYLAU-LEZTBHSI-[id number] * Take 1 tablet by mouth once d* SCOPOLAMINE 1 MG OVER 3 DAYS * Apply 1 Patch as directed frank* TRIAMCINOLONE ACETONIDE 0.1 %* Apply 1 application to affect* Problem List As Of Date 08/08/2018 Noted Resolved DIFFUS CYSTIC MASTOPATHY [N60.19] INVALID FOR* ATROPHIC VAGINITIS [N95.2] INVALID FOR* Osteoporosis [M81.0] INVALID FOR* More... More... Routine gynecological examination [Z01.419] INVALID FOR*03/01/2012 Class: Chronic More... LBBB (Left Bundle Branch Block) [I44.7] INVALID FOR* More... Abdominal pain, right upper quadrant [R10.11] INVALID FOR* Lumbosacral spondylosis without myelopathy [M47*INVALID FOR* Backache, unspecified [M54.9] INVALID FOR* Visit Notes: >> Marbella Kumar Ma Alyce Aug 08, 2018 9:17 AM Status: Signed REVIEW OF SYSTEMS: General: The patient denies fatigue, denies weight loss, denies weight gain, denies feeling hot, and denies feelings of cold. Eyes: The patient denies glaucoma, denies eye injury/surgery, wears glasses or contacts. Ear/Nose/Throat: The patient denies allergies, NOTES hayfever, denies ear infections, and denies bloody noses. Cardiovascular: The patient denies chest pain, denies heart disease, denies high blood pressure,denies cardiac stent, denies prior heart attack, denies irregular heart beat, denies high cholesterol, denies poor circulation, denies heart failure, other cardiac issues, denies claudication, denies cold feet, denies peripheral arterial stent. Respiratory: The patient denies tuberculosis, denies pneumonia, denies frequent cough, denies pulmonary embolism, denies shortness of breath, and denies coughing up blood. Gastrointestinal: The patient denies difficulty swallowing, denies acid reflux, denies ulcers, denies vomiting, denies jaundice/hepatitis, denies gallbladder problems, denies black or tarry stools, denies hemorrhoids, denies bleeding from rectum, denies diverticulitis, denies constipation, denies diarrhea, denies loss of stool control, and denies hernias. Kidney/Bladder: The patient denies kidney stones, NOTES urine infections, and denies bloody urine. Skin: The patient NOTES a history of skin cancer, denies bleeding/changing moles, and denies a history of skin rash. Neurologic: The patient denies a history of epilepsy/convulsions, denies headaches, denies head/spinal injuries, and denies stroke/TIA. Psychiatric: The patient denies psychiatric medications, denies depression, and denies voices, denies substance abuse. Endocrine: The patient denies thyroid disorders, denies diabetes, and denies hormonal problems. Hematologic: The patient denies a history of bruising, denies bleeding, and denies anemia, denies blood clots. Infections: The patient denies a history of measles and mumps, denies rheumatic fever, and denies sexually transmitted diseases. Musculoskeletal: The patient NOTES back pain/injury, denies back problems, denies sciatica, denies knee/foot trouble, denies arthritis, or denies gout. When was patient's last Mammogram screening? 07/2018 Last Colonoscopy: 2007 Marbella Kumar Ma Follow-up and Disposition History Recorded Encounter Status:Closed by DEBBIE KATZ PA-C on 08/12/18 PELVIC (NON ) Observed: 07/30/2018 Status: F Source: [place] 12:54 PM [facility] REPOSITORY [facility] Imaging Services [address] [place] [address] Pelvic (Non ) MR#: [id number] Acct: [id number] Name: VIRIDIANA BEE Rep #: [id number] : 1960 F 58 From: Joe Rosenthal MD PCP: David Pimentel MD Status: REG CLI Study: Pelvic (Non ) Date of Exam: 07/30/18 Exam# [id number] Ordering Dr: Demi Wallace STUDY: ULTRASOUND OF THE FEMALE PELVIS - [...] Joe Rosenthal MD at 12:10 EST Tel [phone], Service support , CC: FAUSTINO Wallace; David Pimentel MD Customer Management Specialist: 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 [address] [place], [place] [address] OFFICE VISIT Date of Service: 07/23/18 MR#: [id number] Acct: [id number] Name: VIRIDIANA BEE Rep #: [id number] : 1960 Provider: FAUSTINO Wallace Age/Sex: 58/F Location: [facility] Status: Signed Intake Vital Signs07/23/18 Height 5 ft 6 in 07/23/18 Weight: 167 lb 2 oz 07/23/18 Body Mass Index (BMI) 26.9 07/23/18 Blood Pressure 118/78 Intake Visit Reasons: ANNUAL Guest Relations Executive Required: No Is patient in pain?: No [...] 3 current occupational status: employed current occupation: [employer] Smoking Status: Never smoker alcohol intake: current alcohol intake frequency: holidays/special occasions only substance use type: does not use diet: other caffeine: Yes Type: coffee, carbonated beverages Number of servings: 1, tea Number of servings: 2 seatbelt use: always do you feel safe at home: Yes additional social history: Winifred 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 DateName GA/Weeks Outcome Route Bt WeighInfant GeLabor LgtAnesthesiDel LocatProvider FOB t n [...] colonoscopy scheduled end of July with Dr. Trotter but has not discussed with with him [...] alert, oriented to person, oriented to place HENAL Head: normal to inspection Neck Neck: normal [...] recent Colonoscopy scheduled. Encouraged should make Dr. Trotter aware of changes in bowel habits and pain prior to colonoscopy Bone density NA RTO 1 year, prn with problems Demi Wallace PULP MIXER Orders Orders: Coding Level of Care Code Off vis,est,prev 40-64yrs Diagnoses Encounter for gynecological examination with abnormal finding Z01.411 Gynecological examination findings: abnormal findings PRESENT Pelvic pain in female R10.2 07/23/18 1202 <Electronically signed by Demi GAMBOA> Date Demi GAMBOA Cosigner Signature: Date (if applicable) CC: SCREENING MAMM (CAD), Observed: 07/22/2018 Status: F Source: [place] 10:59 AM [facility] REPOSITORY [facility] Imaging Services [address] [place] [address] [place] [address] SCREENING MAMM (CAD), LIBRA MR#: [id number] Acct: [id number] Name: VIRIDIANA BEE Rep #: [id number] : 1960 F 58 From: Joe Rosenthal MD PCP: David Pimentel MD Status: REG CLI Study: SCREENING MAMM (CAD), BILAT Date of Exam: 07/22/18 Exam# [id number] Ordering Dr: Demi Wallace LOCOMOTIVE OBSERVER-Javier MAMMOGRAPHY - BILATERAL SCREENING REASON FOR EXAM: [...] delay biopsy of a clinically suspicious abnormality. [id number] Electronically Signed: Joe Rosenthal MD at 14:50 EST Tel [phone], Service support , CC: FAUSTINO Wallace; David Pimentel MD Customer Management Specialist: Signed HOSP Observed: 06/17/2018 Status: COMPLETED Source: [place] 12:00 AM [facility] REPOSITORY Patient:Viridiana Bee MRN: <[id number]> Height:5' 6(1.676 m) Weight:168 lb (76.204 kg) Outpatient Medications as of 08/16/18: conjugated estrogens (PREMARIN) vaginal cream Uuqqbodiswler-Zmtyuylc-Ckgqry (CENTRUM SILVER) ORAL Tab scopolamine (TRANSDERM-SCOP) 1 mg over 3 days triamcinolone acetonide (KENALOG) 0.1 % cream Admission/Clinic Administered Medications as of 08/16/18: lactated ringers infusion Problem List: Diffuse cystic mastopathy [N60.19] Postmenopausal atrophic vaginitis [N95.2] Osteoporosis [M81.0] LBBB (left bundle branch block) [I44.7] Abdominal pain, right upper quadrant [R10.11] Lumbosacral spondylosis without myelopathy [M47.817] Backache, unspecified [M54.9] Allergies: Ampicillin Erythromycin seasonal allergies [Other] Date Verified: 08/16/18 Lab Values No results within the last 30 days for the following basenames: K,HCT Progress Notes ([facility]): Debbie Katz PA-C 08/12/2018 1:32 PM Signed HISTORY AND PHYSICAL Viridiana Bee 1960 REFERRING PHYSICIAN: David Pimentel MD CHIEF COMPLAINT: New Patient and Abdominal Pain HPI: The patient is a 58 year old female referred for endoscopy. Viridiana notes a history of intermittent right lower quadrant discomfort x at least 1 year. She relates the pain to when she is constipated and needs to have a bowel movement. Pain sometimes radiates into her lower back. Pain is typically relieved after having a bowel movement. She has been using miralax and stool softeners with some relief. Patient was recently evaluated by Demi Wallace CNP for the abdominal pain and had a pelvic ultrasound which showed no acute findings. Patient notes that in the she was experiencing similar symptoms in the pelvic area and ended up having exploratory surgery with lysis of adhesions-states had had several past surgeries including hysterectomy, oophorectomy and was found to have multiple adhesions to bladder at that time. She wonders if her right lower abdominal symptoms could be related to adhesions with her bowel. She denies any episodes of small bowel obstruction in the past. Denies nausea, vomiting, bloating, blood in stools or dark stools. Patient was actually already scheduled for colonoscopy as Open Access, to be performed by Dr. Trotter on 08/16/18. Patient's past medical history is significant for left bundle branch block, hemorrhoids, osteoporosis. Patient denies any chest pain, shortness of breath or recent hospitalizations. She denies any problems with sedation in the past. PAST MEDICAL HISTORY Diagnosis Date - Diffuse cystic mastopathy - Internal hemorrhoids without mention of complication - Left bundle branch block 09/2009 - PMH - PAST MEDICAL HISTORY OF lower vit D - PMH - PAST MEDICAL HISTORY OF count low borderline osteoporsis - Shingles January 2008 PAST SURGICAL HISTORY Procedure Laterality Date - DELIVERY ONLY 1983 - COLONOSCOP W/ OR W/O [facility] SPEC 06/12/08 - ECHO GUIDE FOR BIOPSY 10/03/05 U/S FNA Left breast cysts x 3 - FOOT LEFT OP SURGERY 10/2009 Dr. Vega, bilateral - PAST SURGICAL HISTORY OF jaw fracture - REMOVAL OF OVARY(S) 1986 bilateral - TOTAL ABDOM HYSTERECTOMY 1983 Current Outpatient Prescriptions: conjugated estrogens (PREMARIN) vaginal cream Use as directed twice a week Nqabzoozzfjke-Wukqofzf-Gvjhds (CENTRUM SILVER) ORAL Tab Take 1 tablet by mouth once daily. scopolamine (TRANSDERM-SCOP) 1 mg over 3 days Apply 1 Patch as directed every 72 hours. Apply patch to skin behind ear 4hrs prior to travel. triamcinolone acetonide (KENALOG) 0.1 % cream Apply 1 application to affected area three times daily. Apply sparingly to area for rash/itching. No current facility-administered medications for this visit. ALLERGIES: Ampicillin; Erythromycin; Seasonal Allergies [Other] PERSONAL HISTORY: Social History Marital status: Spouse name: winifred Years of education: 14 Number of children: 3 Occupational History Occupation Employer Comment [employer] Social History Main Topics Smoking status: Never Smoker Smokeless tobacco: Never Used Alcohol use: No Drug use: No Sexual activity: Yes Partners with: Male control/protection: Surgical Comment: hysterectomy FAMILY HISTORY: FAMILY HISTORY Problem Relation Age of Onset - Cancer Mother lymphoma - Heart Father - Diabetes Paternal Grandmother late in life, obese - GI Brother colon problems in family - GI Sister - Coronary Artery Disease Other none REVIEW OF SYMPTOMS: The review of systems data was entered by the nurse and reviewed by me Nursing Notes: Marbella Kumar Ma 08/08/2018 9:20 AM Signed REVIEW OF SYSTEMS: General: The patient denies fatigue, denies weight loss, denies weight gain, denies feeling hot, and denies feelings of cold. Eyes: The patient denies glaucoma, denies eye injury/surgery, wears glasses or contacts. Ear/Nose/Throat: The patient denies allergies, NOTES hayfever, denies ear infections, and denies bloody noses. Cardiovascular: The patient denies chest pain, denies heart disease, denies high blood pressure,denies cardiac stent, denies prior heart attack, denies irregular heart beat, denies high cholesterol, denies poor circulation, denies heart failure, other cardiac issues, denies claudication, denies cold feet, denies peripheral arterial stent. Respiratory: The patient denies tuberculosis, denies pneumonia, denies frequent cough, denies pulmonary embolism, denies shortness of breath, and denies coughing up blood. Gastrointestinal: The patient denies difficulty swallowing, denies acid reflux, denies ulcers, denies vomiting, denies jaundice/hepatitis, denies gallbladder problems, denies black or tarry stools, denies hemorrhoids, denies bleeding from rectum, denies diverticulitis, denies constipation, denies diarrhea, denies loss of stool control, and denies hernias. Kidney/Bladder: The patient denies kidney stones, NOTES urine infections, and denies bloody urine. Skin: The patient NOTES a history of skin cancer, denies bleeding/changing moles, and denies a history of skin rash. Neurologic: The patient denies a history of epilepsy/convulsions, denies headaches, denies head/spinal injuries, and denies stroke/TIA. Psychiatric: The patient denies psychiatric medications, denies depression, and denies voices, denies substance abuse. Endocrine: The patient denies thyroid disorders, denies diabetes, and denies hormonal problems. Hematologic: The patient denies a history of bruising, denies bleeding, and denies anemia, denies blood clots. Infections: The patient denies a history of measles and mumps, denies rheumatic fever, and denies sexually transmitted diseases. Musculoskeletal: The patient NOTES back pain/injury, denies back problems, denies sciatica, denies knee/foot trouble, denies arthritis, or denies gout. When was patient's last Mammogram screening? 07/2018 Last Colonoscopy: 2007 Marbella Kumar Ma I have confirmed and edited as necessary, the PFSH and ROS obtained by others. PHYSICAL EXAMINATION: General: The patient is 58 year old female, well nourished, well hydrated in no acute distress. The patient is oriented to time, place, and person. VITALS: Blood pressure 112/66, pulse 80, temperature 36.4 ?C (97.5 ?F), height 167.6 cm (5' 6), weight 76.2 kg (168 lb), SpO2 99 %. Body mass index is 27.12 kg/m?. HEENT: Normal cephalic, ataumatic, pupils are equally round, sclera are anicteric, mucous membranes are moist, oropharynx is clear. Neck has no masses, asymmetry or lymphadenopathy. Respiratory: Clear to auscultation and percussion. Normal respiratory excursion and pattern. Cardiac: Examination is regular rate and rhythm. Abdominal exam: Soft, nontender, with no palpable masses. No hepatosplenomegaly. No palpable hernias. Rectal exam: exam deferred Extremities: no clubbing, cyanosis or edema. No adenopathy. Other: LABORATORY VALUES: As Noted RADIOLOGIC STUDIES: As Noted Assessment IMPRESSION: encounter for colonoscopy. History of chronic right lower quadrant pain-recommend random biopsies PLAN: I have reviewed my findings with the surgeon. Proceed with colonoscopy as scheduled, would also recommend random biopsies be performed at that time due to her history of abdominal pain. We discussed the risks and benefits of the planned endoscopy. I have informed the patient that complications can occur including failure to complete the endoscopy and perforation. The patient had the opportunity to ask questions concerning the planned endoscopy. My staff has also explained the procedure to the patient in understandable terms and has given the patient printed material concerning the procedure. The patient freelyconsents to surgery. I plan to use golytely bowel preparation for endoscopy Diagnoses: (R10.31) Right lower quadrant abdominal pain (primary encounter diagnosis) (Z86.79) History of left bundle branch block Return to Clinic: The patient is instructed to follow-up with me after the colonoscopy when Dr. Trotter is also in office Patient verbalized understanding of above and agreed with the plan YUMI Marshall Ma 08/08/2018 9:20 AM Signed REVIEW OF SYSTEMS: General: The patient denies fatigue, denies weight loss, denies weight gain, denies feeling hot, and denies feelings of cold. Eyes: The patient denies glaucoma, denies eye injury/surgery, wears glasses or contacts. Ear/Nose/Throat: The patient denies allergies, NOTES hayfever, denies ear infections, and denies bloody noses. Cardiovascular: The patient denies chest pain, denies heart disease, denies high blood pressure,denies cardiac stent, denies prior heart attack, denies irregular heart beat, denies high cholesterol, denies poor circulation, denies heart failure, other cardiac issues, denies claudication, denies cold feet, denies peripheral arterial stent. Respiratory: The patient denies tuberculosis, denies pneumonia, denies frequent cough, denies pulmonary embolism, denies shortness of breath, and denies coughing up blood. Gastrointestinal: The patient denies difficulty swallowing, denies acid reflux, denies ulcers, denies vomiting, denies jaundice/hepatitis, denies gallbladder problems, denies black or tarry stools, denies hemorrhoids, denies bleeding from rectum, denies diverticulitis, denies constipation, denies diarrhea, denies loss of stool control, and denies hernias. Kidney/Bladder: The patient denies kidney stones, NOTES urine infections, and denies bloody urine. Skin: The patient NOTES a history of skin cancer, denies bleeding/changing moles, and denies a history of skin rash. Neurologic: The patient denies a history of epilepsy/convulsions, denies headaches, denies head/spinal injuries, and denies stroke/TIA. Psychiatric: The patient denies psychiatric medications, denies depression, and denies voices, denies substance abuse. Endocrine: The patient denies thyroid disorders, denies diabetes, and denies hormonal problems. Hematologic: The patient denies a history of bruising, denies bleeding, and denies anemia, denies blood clots. Infections: The patient denies a history of measles and mumps, denies rheumatic fever, and denies sexually transmitted diseases. Musculoskeletal: The patient NOTES back pain/injury, denies back problems, denies sciatica, denies knee/foot trouble, denies arthritis, or denies gout. When was patient's last Mammogram screening? 07/2018 Last Colonoscopy: 2007 Marbella Kumar Ma Progress Notes ([facility]): Marbella Kumar Ma 07/30/2018 1:38 PM Signed Pt calling to report that she saw SHEATHER, Demi Wallace last week and has been having pain RLQ. Problems with scar tissue attaching to the bladder in the past. (surgery with Saeed) When she has the pain it is with constipation and is normally relieved with laxative and normal BM. Was told to let you know that she had an Ultrasound ABD/Pelvis today at [facility]. Results pending. Just wanted to make you aware of her history in case there would be a possibility of scar tissue attaching to the colon. Marbella Goodman LPN 07/31/2018 7:52 AM Signed If she is having abdominal pain, she should have an office visit with Debbie or me first, before endoscopy (Routing comment) Nova Samayoa Psr 07/31/2018 9:21 AM Signed SCHEDULED 08/08/2018 WITH DEBBIE .Nova [facility]ay[facility] Psr LIPID PROFILE Collected: 06/04/2018 Status: F Source: [place] 9:29 AM [facility] REPOSITORY TYPE CODE TESTS RESULT OUT OF [...] 27 Performed By: #### L500.4100, L501.0100 #### [facility] [address] [place], [address] GLUCOSE Collected: 06/04/2018 Status: F Source: [place] 9:29 AM [facility] REPOSITORY TYPE CODE TESTS RESULT OUT OF RANGE REFERENCE UNITS LAB L501.0100 74-106 mg/dL Normal GLU 77 Result Comment: Please note revised GLUCOSE reference range effective 2017. Performed By: #### L500.4100, L501.0100 #### [facility] [address] [facility] [place], [address] CNPN Observed: 06/04/2018 Status: COMPLETED Source: [place] 12:00 AM [facility] REPOSITORY Telephone (ASW[facility]) VIRIDIANA BEE ([id number]) 1960 F Date Time Provider Department 06/04/18 DAVID PIMENTEL ASWSTR During your visit today, we recorded the [...] left voice message. Mailing colonoscopy letter. Evie Arana Psr Evie Arana Psr 06/17/2018 11:20 AM Signed Scheduled patient for open access colonoscopy with Dr. Trotter on 08/16/18. Mailing instructions. Evie Arana Psr [facility] OPEN ACCESS QUESTIONNAIRE 1. Are you or [...] Please send all open access questionnaires to [facility] Sched Pool #[id number] Evie Arana Psr 06/17/2018 11:20 AM Signed Health Information [...] until the day before your colonoscopy. Designated Admission Specialist on the Day of Your Exam A responsible family member or friend MUST come with you to your colonoscopy and REMAIN in the endoscopy area until you are discharged! You are NOT ALLOWED to drive, take a taxi or bus, or leave the Endoscopy Center ALONE. If you do not have a responsible charter and tour bus driver (family member or friend) with you [...] preparation solution at your local pharmacy or [facility]. Three (3) Days Before Your Colonoscopy [...] carbonated beverages such as nafisa koby or lemon-kiowa tribe soda; Gatorade? or other sports drinks (not [...] calling after 5:00 PM, please call Nurse conveyor technician at [phone]. [facility] [address] [place] [address] [id number] Index # [id number] Revised 09/2016 3 Colonoscopy Procedure Overview Please [...] If the nausea persists, please contact nurse information security officer at [phone]. You may experience skin irritation around the anus due to the passage of liquid stools. To prevent and treat skin irritation, you should: ?Apply Vaseline? or Desitin? ointment to the skin around the anus before drinking the bowel preparation medications. These products can be purchased at any [employer]. ?Wipe the skin after each bowel movement [...] performed your exam. 6 Revised 09/2016 ?Copyright 7938-8407 The [facility]. All rights reserved. Revised 09/2016 Evie [...] malignant neoplasms, colon [Z12.11] Order(s):LIPID PANEL (EXTERNAL) [1350887] Order #: [id number] LIPID PANEL (EXTERNAL) [6115998] Order #: [id number] Order #: [id number] COLONOSCOPY SCRN NOT HIGH RISK [Y0298EHY] Order #: [id number]: 1 FUTURE Prescriptions as of 06/04/2018 Sig: PEG 3350 240 GRAM-ELECTROLYTE* Take 4,000 mL by mouth one ti* TRIAMCINOLONE ACETONIDE 0.1 %* Apply 1 application to affect* SCOPOLAMINE 1 MG OVER 3 DAYS * Apply 1 Patch as directed frank* CONJUGATED ESTROGENS 0.625 MG* Use as directed twice a week * CHBJCWITIAMT-HXENOGLV-XOMKHA * Take 1 tablet by mouth once [...] until the day before your colonoscopy. Designated Admission Specialist on the Day of Your Exam A responsible family member or friend MUST come with you to your colonoscopy and REMAIN in the endoscopy area until you are discharged! You are NOT ALLOWED to drive, take a taxi or bus, or leave the Endoscopy Center ALONE. If you do not have a responsible charter and tour bus driver (family member or friend) with you [...] carbonated beverages such as nafisa koby or lemon-kiowa tribe soda; Gatorade? or other sports drinks (not [...] calling after 5:00 PM, please call Nurse conveyor technician at [phone]. [facility] [address] [place] [address] Index # 23951 Revised 09/2016 3 Colonoscopy Procedure Overview Please [...] If the nausea persists, please contact nurse information security officer at [phone]. You may experience skin irritation around the [...] performed your exam. 6 Revised 09/2016 ?Copyright 9931-6968 The [facility]. All rights reserved. Revised 09/2016 Prescriptions ordered this encounter Disp Refills Start End PEG 3350 240 GRAM-ELECTROLYTES 22.72* 4000* 0 06/18/2018 06/18/2018 Route: ORAL Sig: Take 4,000 mL by mouth one time only for 1 dose. Letter Text [address] [place] [address] 06/17/2018 Viridiana Bee [id number] Dear Viridiana , As your healthcare provider, [...] this procedure. Please contact our schedulers at [phone] schedule an appointment or contact your primary care physician if you have any questions regarding colon cancer screening. As always, your health is of primary concern to our practice. We look forward to hearing from you. Sincerely, [facility] Encounter Status:Closed by EVIE MONROE on 06/17/18 KIDNEY AND BLADDER Observed: 09/20/2017 Status: F Source: [place] 7:55 AM [facility] REPOSITORY [facility] Imaging Services [address] [place] [address] [place] [address] Kidney and Bladder MR#: [id number] Acct: [id number] Name: VIRIDIANA BEE Rep #: [id number] : 1960 F 57 From: Joe Rosenthal MD PCP: David Pimentel MD Status: REG CLI Study: Kidney and Bladder Date of Exam: 09/20/17 Exam# [id number] Ordering Dr: Irena Rico NP-Javier STUDY: RENAL ULTRASOUND - COMPLETE REASON FOR [...] Joe Rosenthal MD at 12:49 EST Tel [phone], Service support , CC: Irena Rico LOCOMOTIVE OBSERVER; David Pimentel MD Customer Management Specialist: Signed ALLERGIES ALLERGIES DATE TYPE / CODE NAME / CODE REACTION SEVERITY SOURCE Drug Penicillins/F0010 Rash Unknown [facility]io [facility] 8 Allergy/653879611( 90095(RXNORM) Community SN[facility]) Hospital Repository Drug erythromycin Rash Unknown [place] 8 Allergy/981558899( base/E919594121(R Community SNOMED CT) XNORM) Hospital Repository Miscellaneous OTHER [place] 6 Allergy/179045515( Clinic Main SNOMED CT) [place] Repository DRUG AMPICILLIN [place] [facility] INGREDI/711440671( Clinic Main SNOMED CT) [place] Repository DRUG/898787517(SNO ERYTHROMYCIN [place] [address]) [facility] Main [place] Repository ENCOUNTERS ENCOUNTERS ADMIT/DISCHARGE ACCOUNT ADMITTING ENCOUNTER LOCATION SOURCE NUMBER CLASS 08/29/2018/09/05/19 [id number] Ambulatory [place] [facility] Repository 08/16/2018/08/16/20 [id number] ROSE MARIE, Ambulatory [place] [facility] Repository 08/08/2018/08/14/20 [id number] Ambulatory [address] Repository 07/30/2018 [id number] [facility] ing:OPUS Repository 07/23/2018/07/23/20 [id number] Ambulatory BMSBuilding:B [place] [address] [facility] Repository 07/22/2018 [id number] [facility] ing:OPBI Repository 06/04/2018 [id number] [facility] ing:HW Repository 09/20/2017 [id number] [facility] ing:US Repository PAYERS PAYERS ENCOUNTER GUARANTOR PAYER SUBSCRIBER SOURCE 07/30/2018 LAURESA A Primary LAURESA A [place] [id number] JUSTIN Insurance:ANTHEMPolic DURHAMDOB: [facility] MADELINE arabella PABON Number: [id number] [facility] [address]Aql: [id number] Repository Date:[id number] [address] () [id number], [place] [address]PZ: 07/30/2018 Secondary NOT GIVENUNK Julio César Insurance:SELF PAY [facility] Number: Effective Repository Date:2018-07-24 07/23/2018 VIETA A Primary VIETA A [place] [id number] JUSTIN Insurance:ANTHEMPolic DURHAMDOB: [facility], y Number: [id number] [facility] 19641Rbw: [id number] Repository Date:[id number] [address] () [id number] [place] [address]OO: 07/23/2018 Secondary NOT GIVENUNK [place] Insurance:SELF PAY [facility] Number: Effective Repository Date:2018-07-23 07/22/2018 MILTONESA A Primary VIETA A [place] [id number] JUSTIN Insurance:ANTHEMPolic DURHAMDOB: [facility], y Number: [id number] [facility] [address]Bpg: [id number] Repository Date:[id number] [address] () [id number] [place] [address]PD: 07/22/2018 Secondary NOT GIVENUNK Julio César Insurance:SELF PAY [facility] Number: Effective Repository Date:2018-05-21 06/04/2018 VIETA A Primary NOT GIVENUNK Julio César [id number] JUSTIN Insurance:SELF PAY [facility] [address]Val: (330) Number: Effective Repository [phone] () Date:2018-05-24 09/20/2017 VIETA A Primary VIETA A [place] [id number] JUSTIN Insurance:ANTHEMPolic DURHAMDOB: [place] Number: [id number] Hospital [address]Dvs: (330) [id number] Repository [phone] () Date:[id number], [place] [address]RB: 09/20/2017 Secondary NOT GIVENUNK [place] Insurance:SELF PAY [facility] Number: Effective Repository Date:2017-09-10
== END ==
PROVIDERS: Family Provider Family Medicine; PCP Family Medicine; Referring Provider Nurse Practitioner Women's Health; Visit Provider Nurse Practitioner Women's Health
DX: R10.2 Pelvic and perineal pain (principal)
CPT/HCPCS: 76856

== ENCOUNTER → 2020-05-12 | Outpatient (CLI) | payer BC, SELFPAY ==
[2018-07-23 11:28] VITALS: BMI 26.9
--- NOTE | 2020-05-12 12:19 | BI_ITS ---
MAMMOGRAPHY - BILATERAL SCREENING REASON FOR EXAM: Female, 60 years old. Routine annual screening examination. PERTINENT HISTORY: Non-contributory. TECHNIQUE: Digital bilateral breast stoney (3D mammographic acquisition) in the CC and MLO projections. 2-D mediolateral oblique (MLO) and craniocaudad (CC) views of both breasts were obtained. CAD: Full Field Digital Mammography with Computer Added Detection was performed. COMPARISON: Comparison is made with prior study dated 07/22/2018. FINDINGS: Breast Composition: The breasts are heterogeneously dense, which may obscure small masses. There are no dominant masses or suspicious calcifications. No other significant abnormalities are identified. There has been no significant change since the prior study. BI/SCREEN MAMM (CAD) W/STONEY BILAT IMPRESSION: Stable bilateral screening mammogram. Yearly follow-up mammogram recommended. (A) ASSESSMENT CATEGORY: BIRADS Category 1: Negative. A letter regarding these results will be sent to the patient by the facility within 30 days. Approximately 10% of breast cancers are not detected by mammography. A normal mammogram should not delay biopsy of a clinically suspicious abnormality. [id number] Electronically Signed: Joe Rosenthal, at 13:25 EDT , Service support ,
== END | disposition home or self-care (01) ==
PROVIDERS: PCP Family Medicine; Referring Provider Nurse Practitioner Women's Health; Visit Provider Nurse Practitioner Women's Health
DX: Z12.31 Encounter for screening mammogram for malignant neoplasm of breast (principal)
CPT/HCPCS: 77063; 77067

== ENCOUNTER 2020-11-21 10:38 | Emergency (ER) | payer BC, SELFPAY ==
[2020-05-12 13:02] VITALS: BMI 26.9
[2020-11-21 10:40] VITALS: BP 91/57; PULSE 79; RESP 16; TEMP 36.7; O2SAT 93; BMI 29.5
--- NOTE | 2020-11-21 10:51 | CT_ITS ---
STUDY: CTA CHEST REASON FOR EXAM: Female, 60 years old. syncope. 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 RADIATION DOSAGE (If Supplied By Facility): CTDIvol = ( 9.65 ) mGy, DLP = ( 500.91 ) mGycm TECHNIQUE: The examination was performed with the intravenous administration of IV 75mL Isovue-370. Post-processing of the angiographic images was performed, with multiplanar reformation and 3D reconstruction. Individualized dose optimization techniques were used for this CT. COMPARISON: Chest x-ray on the same day.. FINDINGS: Normal enhancement of the main pulmonary artery and right and left pulmonary arteries. Normal enhancement of the bilateral peripheral pulmonary arteries. There is no demonstrated pulmonary embolism. Normal thoracic aorta and visualized great vessels. There is no demonstrated aortic dissection. Normal heart and pericardium. Normal mediastinum. Normal hilar regions. Normal visualized trachea and bronchi. The lungs are hyper expanded, with flattening of the hemidiaphragms. No definite infiltrates or effusions. 4.2 cm soft tissue mass just beyond the right hilum consistent with malignancy. 1 cm nodule in the lingula, image 113 1 cm nodule along the left pericardial surface, image 103. 1 cm nodule in the lateral right lung base, axial image 102. Degenerative disease throughout the bones. Abnormal platelike soft tissue density under the sternum, measuring 5.3 cm wide and 9.2 cm craniocaudal dimensions. Given the patient''s history, probable metastatic disease. 3.8 cm soft tissue mass in the subcutaneous tissues to the right of midline in the mid back, probably metastatic melanoma. Grossly normal visualized upper abdomen. CT/CTA Chest W/WO Contrast IMPRESSION: Normal CTA chest examination, without a demonstrated pulmonary embolism or arterial dissection. Metastatic disease to both lungs and under the sternum. Electronically Signed: Kostas Middleton MD at 12:36 EDT , Service support ,
--- NOTE | 2020-11-21 10:51 | EKG12_ITS ---
Test Reason : DIZZINESS Blood Pressure : / mmHG Vent. Rate : 079 BPM Atrial Rate : 079 BPM P-R Int : 136 ms QRS Dur : 118 ms QT Int : 404 ms P-R-T Axes : 058 -32 073 degrees QTc Int : 463 ms Normal sinus rhythm Left axis deviation Septal infarct , age undetermined Abnormal ECG Confirmed by NEIL SANCHEZ, SANJUANA ([id number]), film editor supervisor MAXIMO CURTIS ([id number]) on 11/24/2020 7:51:30 AM Referred By: JOHNSON Confirmed By:SANJUANA TREJO MD
--- NOTE | 2020-11-21 10:51 | RAD_ITS ---
STUDY: X-RAY CHEST REASON FOR EXAM: Female, 60 years old. Chest pain TECHNIQUE: Single AP portable view of the chest. COMPARISON: None. FINDINGS: Left sided Port-A-Cath with its tip in the distal superior vena cava. Right hilar mass. No focal infiltrate otherwise is seen. There is no demonstrated pleural abnormality. Normal size heart. Normal mediastinum and armando. Normal visualized pulmonary arteries. Normal visualized aortic arch and descending thoracic aorta. Dextroscoliosis of the thoracic spine. There is no demonstrated abnormality of the visualized soft tissue structures of the upper abdomen. RAD/Chest 1 View (Portable) IMPRESSION: Right perihilar mass. CT scanning chest is recommended. Electronically Signed: Marcus Lozoya MD at 12:14 EDT Tel , Service support ,
--- NOTE | 2020-11-21 10:52 | ED.DCSUM_ITS ---
History of Present Illness Chief Complaint: Dizziness Informant: Patient, Family Narrative: 60-year-old female presenting with syncopal episode while sitting at [employer]. She states she has had 2 episodes similar to this over the last few weeks. Patient currently has stage IV melanoma and gets T VAC infusions regularly. She states that she has spots on her legs and in her lung. Patient states she did not have any chest pain or shortness of breath but became very sweaty and nauseous during this episode this morning. states that she was unconscious for a short time. No seizure activity as described. She did not fall or hit her head. Patient states that she has had a rapid heart rate recently and had an outpatient echocardiogram which showed the left side of her heart is not quite functional. She states she was also told she has a left bundle branch block. Patient states that her primary care physician prescribed her carvedilol to lower heart rate. She states he has only been taking this for short time. Patient also states she took oxycodone this morning before going to [facility] due to pain in her legs as a reaction to her TVAC infusion and her pain. She states she does not have any cardiac history that she knows of other than the rapid heart rate. She not had fever, chills. Eating and drinking normally. Denies urinary or vaginal complaints. Past Medical History - Allergies and Home Meds Allergies/Adverse Reactions: Allergies erythromycin base Adverse Reaction (Unknown, Verified 11/21/20 10:39) rash Penicillins Adverse Reaction (Unknown, Verified 11/21/20 10:39) rash Primary Care Physician: Jose Pimentel [Primary Care Provider] - Prior records reviewed: Yes Past Medical History: - - Melanoma, syncope, anxiety, GERD Surgical History: - - Lymph node biopsy, x3, colonoscopy right foot surgery, melanoma removal right lower leg, oophorectomy, hysterectomy Lives: Spouse/ Significant Other Smoking Status: Never smoker Alcohol: Occasional Drugs: None Review of Systems General: Denies: Chills, Fever Eyes: Denies: Visual changes - bilaterally, Diplopia ENT: Reports: Bilateral ear pain Cardiovascular: Reports: Palpitations, Heart racing, - - Syncope x3. Denies: Chest pain Respiratory: Denies: Dyspnea, Cough Gastrointestinal: Reports: Nausea. Denies: Abdominal pain, Vomiting, Diarrhea Genitourinary: Denies: Dysuria, Hematuria Musculoskeletal: Denies: Myalgias, Arthralgias Skin: Denies: Rash, Abscess Neurological: Reports: Headache. Denies: Weakness, Parasthesia Psych: Denies: Depression, Anxiety, Suicidal thoughts, Suicidal ideations Endocrine: Denies: Polyuria, Polydipsia Hematologic: Denies: Easy bruising, Easy bleeding Physical Exam Vital Signs/Narrative: Vital Signs Temp Pulse Resp BP Pulse Ox 11/21/20 10:40 98.0 F 79 16 91/57 L 93 Inital Vital Signs reviewed: Yes General: Well nourished, Acute Distress Head: Normocephalic, Atraumatic Eyes: Perrl, EOMI ENT: Moist mucous membranes, No rhinorrhea Cardiovascular: Regular rate, Regular rhythm Respiratory: No distress, CTA bilaterally Abdomen: Soft, Nontender, Nondistended Extremities: Nontender, No edema Skin: Normal color. Negative for: Cyanosis, Diaphoresis Neurological: Alert, Oriented x3, Cranial nerves II-XII grossly intact Psychological: Normal affect, Normal Mood Diagnostic/Tx/Re-eval Clinical Impression(s) from Imaging Studies Chest CTA 11/21/20 10:51 IMPRESSION: Normal CTA chest examination, without a demonstrated pulmonary embolism or arterial dissection. Metastatic disease to both lungs and under the sternum. Electronically Signed: Kostas Middleton MD at 12:36 EDT , Service support , Chest X-Ray 11/21/20 10:51 IMPRESSION: Right perihilar mass. CT scanning chest is recommended. Electronically Signed: Marcus Lozoya MD at 12:14 EDT Tel , Service support , Brain CT 11/21/20 11:06 IMPRESSION: Unremarkable unenhanced CT scan of the brain. Electronically Signed: Trudy Bach MD at 12:44 EDT Tel , Service support , Laboratory Data 11/21/20 11/21/20 11/21/20 11:00 11:00 12:30 WBC 17.4 H RBC 3.43 L Hgb 11.1 L Hct 34.8 L MCV 101.5 H MCH 32.4 H MCHC 31.9 L RDW Std Deviation 51.5 H RDW Coeff of Harpreet 13.9 Plt Count 257 MPV 8.7 Neut % (Auto) Not Reportable Absolute Neuts (auto) 14.4 H Absolute Lymphs (auto) 1.04 Total Counted 100 Neutrophils % (Manual) 82 H Band Neutrophils % 1 Lymphocytes % (Manual) 6 L Monocytes % (Manual) 8 Eosinophils % (Manual) 3 Diff Path Review May foll Reactive Lymphocytes RARE Platelet Estimate ADEQUATE Plt Morphology Comment LARG Sodium 135 L Potassium 3.6 Chloride 101 Carbon Dioxide 28.0 Anion Gap 6 BUN 16 Creatinine 0.87 Estim Creat Clear Calc 62.76 Est GFR (MDRD) Af Amer 85 Est GFR (MDRD) Non-Af 70 BUN/Creatinine Ratio 18.4 Glucose 133 H Calcium 8.6 Magnesium 2.1 Troponin I < 0.015 TSH 3.02 Urine Color Yellow Urine Clarity Clear Urine pH 7.0 Ur Specific [place] 1.005 Urine Protein Negative Urine Glucose (UA) Normal Urine Ketones Negative Urine Occult Blood 10 H Urine Nitrite Negative Urine Bilirubin Negative Urine Urobilinogen Normal Ur Leukocyte Esterase Negative Urine RBC 0 SEEN Urine WBC 0 SEEN Ur Squamous Epith Cells 0 SEEN Urine Bacteria 0 SEEN Urine Mucus 0 SEEN - Medical Decision Making 60-year-old female presenting for evaluation of syncopal events. She states that 2 other episodes of this. Patient states she had an echocardiogram which showed some insufficiency of the left side of her heart. Patient states she is recently started on carvedilol because she had a rapid heart rate. This was done by Dr. Mistry her silk winding machine operator. Patient does report that prior to starting this medication that she would get heart rates in the 30s and low blood pressure at home and this would be periodic. Her silk winding machine operator felt that it was clean DuoDote recently started Opdivo. Patient also states she is on Bactrim 3 times a week because she is on CellCept and she is immune deficient and therefore the Bactrim is preventative. She had EKG performed on arrival which shows a sinus rhythm at 79 beats per minute without difficult interval change from EKG performed 27 March 2010. Chest x-ray as interpreted by myself shows right perihilar mass without acute infiltrate radiology does agree. CBC does show a leukocytosis of 17.4 which is only slightly more elevated on her previous lab work and she is on daily prednisone. Hemoglobin is 11.1. Platelets are reported as adequate. Electrolytes and renal function are normal. Troponin is negative. TSH is normal. Magnesium level normal. Since orthostatic vitals are normal. Patient is observed ambulating to and from the restroom without significant dizziness. CTA of the chest does show what appears to be more metastasis since her previous CAT scan with IV contrast. Attempted multiple times to contact her silk winding machine operator however I was unable to get a call back. I did discuss the patient with Dr. Villa the on-call silk winding machine operator at [facility]. He recommended discontinuing the carvedilol and have her call back to her silk winding machine operator tomorrow. He recommended a 30 Day Loop recorder. This was all relayed to the patient. She feels comfortable being discharged home at this time. I did also discuss the patient with the on-call oncologist Dr. Sheehan will follow up with her regarding her hemoglobin levels and her worsening CTA of the chest. Patient stable for discharge at this time. Impression: 1. Anemia 2. Syncope 3. History of stage IV melanoma ED Disposition - Plan for ED Patient: Disposition: Home or Assisted Living Instructions: ED Near-Fainting, Uncertain Cause Referrals: Jose Pimentel [Primary Care Provider] - Additional Instructions: I recommend holding her carvedilol for now. I spoke with Dr. Villa our on-call silk winding machine operator and he recommended this as well. He also recommends a loop recorder implantable device for a longer term to see if you are having any other dysrhythmias. 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 Please c all your silk winding machine operator tomorrow. If you are having any other signs or symptoms which are concerning please return to the emergency room.
--- NOTE | 2020-11-21 11:06 | CT_ITS ---
STUDY: CT BRAIN WITHOUT CONTRAST REASON FOR EXAM: Female, 60 years old. syncope RADIATION DOSAGE (If Supplied By Facility): CTDIvol = ( 44.99 ) mGy, DLP = ( 796.11 ) mGycm TECHNIQUE: Transaxial CT imaging of the brain was performed without administration of intravenous contrast material. Individualized dose optimization techniques were used for this CT. COMPARISON: None. FINDINGS: Normal size ventricles and extra-axial spaces for the patient''s age. Normal white matter tracts of the cerebral hemispheres. There is no intracranial hemorrhage. There are no findings of an acute ischemic infarction. Normal soft tissue structures. Normal visualized paranasal sinuses. CT/Brain/Head without Contrast IMPRESSION: Unremarkable unenhanced CT scan of the brain. Electronically Signed: Trudy Bach MD at 12:44 EDT Tel , Service support ,
[2020-11-21 11:09] LABS: Hematocrit 34.8 % (37-47); Hemoglobin 11.1 g/dL (12.0-15.0); Mean Corp Hgb Conc 31.9 g/dL (32-36); Mean Corpuscular Hgb 32.4 pg (27.0-32.0); Mean Corpuscular Volume 101.5 fL (81-99); Mean Platelet Vol. 8.7 fl (6.2-12.0); POSITIVE COUNT YES; POSITIVE MORPHOLOGY YES; Platelet Count 257 K/mm3 (150-450); RBC Distribution Width CV 13.9 % (11.6-14.6); RBC Distribution Width SD 51.5 fl (35.1-43.9); Red Blood Count 3.43 M/mm3 (4.2-5.4); White Blood Count 17.4 K/mm3 (4.4-11.0)
[2020-11-21 11:12] LABS: Differential Indicated MANUAL DIFF
[2020-11-21 11:18] VITALS: BP 96/63; BP 97/62; BP 97/63; PULSE 80; PULSE 83; PULSE 85
[2020-11-21 11:32] LABS: Anion Gap 6 (5-15); BUN 16 mg/dL (7-18); BUN/Creat Ratio 18.4 RATIO (10-20); Calcium,Total 8.6 mg/dL (8.5-10.1); Chloride 101 mmol/L (98-107); Creatinine, Serum 0.87 mg/dL (0.55-1.02); EST Glomerular Filtration Rate 70 mL/min (>60); Est Glom Filt Rate - Afr Amer 85 mL/min (>60); Estimated Creatinine Clearance 62.76 ml/min; Glucose 133 mg/dL (74-106); Magnesium 2.1 mg/dL (1.6-2.6); Potassium 3.6 mmol/L (3.5-5.1); Sodium Level 135 mmol/L (136-145); Thyroid Stim Hormone (TSH) 3.02 uIU/mL (0.358-3.74)
[2020-11-21 11:33] LABS: Eosinophil 3 % (0-5); Lymphocyte 6 % (19-41); Monocyte 8 % (0-10); Neutrophil-Band 1 % (0-5); Neutrophil-Segmented 82 % (47-70); Total Cells Counted 100 (MANUAL DIFF)
[2020-11-21 11:36] LABS: Platelet Estimate ADEQUATE (ADEQ); Platelet Morphology LARG; Reactive Lymphocyte RARE
[2020-11-21 11:37] LABS: Absolute Lymphocyte Count 1.04 X10^3/uL (0.83-4.51); Absolute Neutrophil Count 14.4 X10^3/uL (2.0-7.7)
[2020-11-21 12:35] LABS: Bacteria 0 SEEN /hpf (None Seen); Mucous, Urine 0 SEEN /hpf (<or=2+); Red Blood Cells-Urine 0 SEEN /hpf (0-5); Squamous Epithelial Cells - UA 0 SEEN /hpf (5-10); White Blood Cells 0 SEEN /hpf (0-5)
[2020-11-21 12:37] LABS: Color, Urine Yellow (Yellow); Glucose, Dipstick Normal (Normal); Ketone-Dipstick Negative (Negative); Leukocyte Esterase-Dipstick Negative /ul (Negative); Nitrite-Dipstick Negative (Negative); Occult Blood-Urine 10 /ul (Negative); Protein-Dipstick Negative (Negative); Specific Gravity, Urine 1.005 (1.002-1.030); Urine Bilirubin Dipstick Negative (Negative); Urine Clarity Clear (Clear); Urine Urobilinogen Normal (Normal)
[2020-11-21 13:00] VITALS: BP 102/68; PULSE 79; RESP 21; O2SAT 97
[2020-11-21 14:52] VITALS: BP 110/72; PULSE 82; RESP 14; O2SAT 95
--- NOTE | 2020-11-21 14:59 | ED.RN ---
pt's port flushed with heparin 5ml flush prior to d/c
[2020-11-22 12:19] LABS: Pathologist Review Reviewed
== END 2020-11-21 14:57 | disposition home or self-care (01) ==
PROVIDERS: Emergency Provider Student in an Organized Health Care Education/Training Program
DX: D64.9 Anemia, unspecified (principal); R55 Syncope and collapse; C43.9 Malignant melanoma of skin, unspecified; K21.9 Gastro-esophageal reflux disease without esophagitis; F41.9 Anxiety disorder, unspecified; Z79.899 Other long term (current) drug therapy
CPT/HCPCS: 36591; 70450; 71045; 71275; 80048; 81001; 83735; 84443; 84484; 85025; 93005; 99285; Q9967; A4216

== ENCOUNTER 2020-12-10 13:10 | Emergency (ER) | payer BC, SELFPAY ==
[2020-12-10 13:10] VITALS: BP 103/58; PULSE 97; RESP 16; TEMP 36.3; O2SAT 96; BMI 27.6
--- NOTE | 2020-12-10 13:34 | CT_ITS ---
STUDY: CT ABDOMEN AND PELVIS WITH CONTRAST REASON FOR EXAM: Female, 60 years old. Right upper quadrant pain, melanoma RADIATION DOSAGE (If Supplied By Facility): CTDIvol = ( 12.40 ) mGy, DLP = ( 1293.58 ) mGycm TECHNIQUE: CT images were obtained from the dome of the diaphragm to the symphysis pubis without oral contrast. IV 100mL Isovue-370 was administered. Sagittal and coronal images were reconstructed. Individualized dose optimization techniques were used for this CT. COMPARISON: None. FINDINGS: There is a right upper back parasagittal 4 cm mass and right lateral breast 2 cm soft tissue metastasis. The liver is severely replaced with multiple various sized metastases. At least 60% of the hepatic parenchyma is replaced with tumor. There is no biliary dilation. There are enlarged chrissy hepatis lymph nodes up to 2 cm. Gallbladder is normal. Spleen contains multiple metastases. Kidneys and adrenals are normal. Pancreas is normal. There is no intestinal obstruction. Uterus is removed. There are enlarged right peritoneal lymph nodes measuring up to 1.1 cm. There is conglomerate multiloculated heterogeneous necrotic mass in the right inguinal region and upper thigh measuring 7 and 7.5 cm in various dimensions with adjacent conglomerate lymphadenopathy. Osseous structures are intact without destructive lesions and lumbar canal is patent. CT/Abdomen/Pelvis W IV Cont ONLY IMPRESSION: 1. Severe hepatic metastatic replacement. 2. Multiple splenic metastases. 3. Large necrotic right inguinal and upper thigh metastasis. Electronically Signed: Efraín Sousa MD at 15:51 EDT Tel , Service support ,
[2020-12-10 14:17] LABS: Basophil# 0.17 X10^3/uL; Eosinophil# 0.34 X10^3/uL; Hematocrit 33.6 % (37-47); Hemoglobin 10.4 g/dL (12.0-15.0); Mean Corpuscular Hgb 31.2 pg (27.0-32.0); Mean Corpuscular Volume 100.9 fL (81-99); Mean Platelet Vol. 9.4 fl (6.2-12.0); Monocyte# 1.37 X10^3/uL; NRBC Flagged by Analyzer 0.2 % (0-5); POSITIVE COUNT YES; POSITIVE MORPHOLOGY YES; Platelet Count 160 K/mm3 (150-450); RBC Distribution Width CV 14.2 % (11.6-14.6); RBC Distribution Width SD 51.4 fl (35.1-43.9); Red Blood Count 3.33 M/mm3 (4.2-5.4); White Blood Count 15.6 K/mm3 (4.4-11.0)
[2020-12-10 14:19] LABS: Differential Indicated SCAN CRITERIA MET
[2020-12-10] MEDS: 0.9% Normal Saline 1,000 ML 1000 ML IV (14:28)
[2020-12-10] MEDS: Morphine 4 MG/ML Syringe IV (14:29)
[2020-12-10] MEDS: Ondansetron 4 MG/2 ML Vial IV (14:29)
[2020-12-10 14:34] LABS: ALB/GLOB Ratio 0.8 RATIO (0.9-2.4); AST(SGOT) 115 U/L (15-37); Alanine Aminotransfer ALT/SGPT 89 U/L (13-56); Albumin, Serum 2.5 g/dL (3.2-5.0); Alkaline Phosphatase 218 U/L (45-117); Anion Gap 3 (5-15); BUN 9 mg/dL (7-18); BUN/Creat Ratio 10.8 RATIO (10-20); Calcium,Total 8.7 mg/dL (8.5-10.1); Chloride 101 mmol/L (98-107); Creatinine, Serum 0.83 mg/dL (0.55-1.02); EST Glomerular Filtration Rate 74 mL/min (>60); Est Glom Filt Rate - Afr Amer 89 mL/min (>60); Estimated Creatinine Clearance 65.79 ml/min; Globulin 3.2 g/dL (2.2-4.2); Glucose 89 mg/dL (74-106); Lipase 50 U/L (73-393); Potassium 4.3 mmol/L (3.5-5.1); Protein, Total 5.7 g/dL (6.4-8.2); Sodium Level 136 mmol/L (136-145)
[2020-12-10 14:38] VITALS: BP 104/67; PULSE 82; RESP 16; O2SAT 98
--- NOTE | 2020-12-10 14:43 | CT_ITS ---
STUDY: CTA CHEST REASON FOR EXAM: Female, 60 years old. Pulmonary embolism evaluation RADIATION DOSAGE (If Supplied By Facility): CTDIvol = ( 12.40 ) mGy, DLP = ( 1293.58 ) mGycm TECHNIQUE: The examination was performed with the intravenous administration of IV 100mL Isovue-370. Post-processing of the angiographic images was performed, with multiplanar reformation and 3D reconstruction. Individualized dose optimization techniques were used for this CT. COMPARISON: 21 November 2020 FINDINGS: There is no acute or chronic pulmonary embolism. Aorta is of normal caliber and intact. There are multiple metastases throughout the chest in the lungs, mediastinum and right chest wall. There is extensive retrosternal flat heterogeneously enhancing neoplastic disease invading the pericardium and pleura. There is minor pericardial effusion. Left prevascular lymph node anterolateral to the aortic arch has increased in size now measuring 1.3 cm, previously 9 mm. This represents regression of neoplastic disease. Right upper lobe lesion now measures 4.6 cm. Distal part of the lesion likely is related to postobstructive pneumonitis. Left hilar lymphadenopathy has increased now measuring 1.5 cm smaller adjacent lymph nodes. There are 2 lingular metastases measuring 1 and 1.3 cm, both mildly increased due to disease progression. There are additional smaller nodules. There is a small left pleural effusion and multiple pleural parenchymal nodules, too small to measure but increasing in number. There are mild scattered atelectatic foci. Central airways are patent. There is right lateral axillary 2.1 cm soft tissue metastasis and right posterior parasagittal back deep subcutaneous to venous compartment 4.6 cm metastasis with smaller satellite nodules. There is no pulmonary edema, pneumothorax or pneumonia. Thoracic spine is intact and aligned without destructive lesions. Canal is patent. CT/CTA Chest W/WO Contrast IMPRESSION: 1. No pulmonary embolism. 2. Neoplastic disease progression. Enlarging pulmonary metastases and intestinal lymph nodes. 3. Pulmonary, mediastinal soft tissue, mediastinal lymphadenopathy and subcutaneous body wall metastases. Electronically Signed: Efraín Sousa MD at 16:12 EDT Tel , Service support ,
[2020-12-10 14:47] LABS: Eosinophil 2 % (0-5); Lymphocyte 7 % (19-41); Monocyte 2 % (0-10); Neutrophil-Band 6 % (0-5); Neutrophil-Segmented 83 % (47-70); Total Cells Counted 100 (MANUAL DIFF)
[2020-12-10 14:48] LABS: Scan Smear per Review Criteria MANUAL DIFF
[2020-12-10 14:49] LABS: Absolute Lymphocyte Count 1.08 X10^3/uL (0.83-4.51); Absolute Neutrophil Count 13.8 X10^3/uL (2.0-7.7); Lymphocyte # 1.08 X10^3/ul (0.83-4.51); Neutrophil # 13.83 X10^3/uL (2.7-7.7)
[2020-12-10 14:50] LABS: D-Dimer Quantitative (DVT/PE) > 20.00 FEU/ug/m (0.27-0.49)
[2020-12-10 15:42] LABS: Lactic Acid 1.2 mmol/L (0.4-1.9)
[2020-12-10 16:30] VITALS: BP 99/70; PULSE 76; RESP 19; O2SAT 96
--- NOTE | 2020-12-10 16:42 | ED.VISSUMM ---
- ER Visit Summary Date of Service: 12/10/20 Chief Complaint: Abdominal pain History of Present Illness: The patient is a [address] Alvarado and Dr. Pimentel. She reports that she has a history of metastatic melanoma. States that she has had right upper quadrant pain that began 8 days ago. It is gradually gotten worse. Says sharp pain is 9-10 at worst and 4-10 currently. Is worsened by movement, food, or breathing. Is relieved by oxycodone and Motrin. She reports has been nausea and had dry heaves. No vomiting. No diarrhea. Her last bowel was 2 days ago. Typically she goes daily. She denies any dysuria or frequency. Physical Examination: Vitals: Stable. Afebrile. General: Well-nourished and well-developed. Head: Normocephalic atraumatic. Neck: Supple, no lymphadenopathy. No JVD. Nontender. Cardiovascular: Regular rate and rhythm. No murmurs. Respiratory: No respiratory distress. Clear to auscultation bilaterally. Abdominal: Soft, severe tenderness palpation in the right upper quadrant and epigastric regions, nondistended, normal bowel sounds. No guarding, rebound, or peritoneal signs. Back: Nontender. Extremities: Nontender, no edema. Skin: Normal color, no rash. Neurologic: Alert and oriented ?3. Cranial nerves II through XII are intact. Normal strength and sensation. Psych: Normal affect. Test Results: CBC shows a white count of 15.6 with an H&H 10.4 and 33.6, second neutrophils 72 lymphocytes of 7, immature granulocytes of 9.3%. Chem-7 is normal. LFTs show total bili 1.3, alk phos of 218, ALT of 89, AST of 115. Lipase is 50. Lactic acid is 1.2. D-dimer is greater than 20. Clinical Impression(s) from Imaging Studies Abdomen/Pelvis CT 12/10/20 13:34 IMPRESSION: 1. Severe hepatic metastatic replacement. 2. Multiple splenic metastases. 3. Large necrotic right inguinal and upper thigh metastasis. Electronically Signed: Efraín Sousa MD at 15:51 EDT Tel , Service support , Chest CTA 12/10/20 14:43 IMPRESSION: 1. No pulmonary embolism. 2. Neoplastic disease progression. Enlarging pulmonary metastases and intestinal lymph nodes. 3. Pulmonary, mediastinal soft tissue, mediastinal lymphadenopathy and subcutaneous body wall metastases. Electronically Signed: Efraín Sousa MD at 16:12 EDT Tel , Service support , Emergency Department Course and Treatment: Patient was given morphine and Zofran IV. Treatment Plan: The patient was discussed with Dr. Alvarado who has called and discussed the findings with the patient. He did bring up the possibility of hospice. I does not sound as though the patient is ready for this. She will be discharged with OxyContin and oxycodone for breakthrough pain. Instructed to follow-up with Dr. Alvarado in 3 days for another exam. Return to the emergency department for any worsening symptoms. Disposition: To home in improved and stable condition. Impression: 1. Melanoma with metastases to lung, liver, and spleen. This note was generated with [employer]ende[employer] dictation software. It may contain incorrect words, spelling, and punctuation that were not noted in review of the chart prior to signing ED Disposition - Plan for ED Patient: Disposition: Home or Assisted Living Instructions: What Is Hospice?, What is Palliative Care? Prescriptions: Oxycodone HCl/Acetaminophen [Oxycodone-Acetaminophen 5-325] 1 each PO 4X/DAY PRN PRN #30 tablet PRN Reason: Pain Score 6-10 Prescription Printed Oxycodone CR [Oxycontin] 10 mg PO Q12H #14 tab Prescription Printed Sennosides [Senna] 8.6 mg PO QHS #30 tablet Prescription Printed Referrals: Anthony Alvarado DO [STAFF PHYSICIAN] - 12/13/20
[2020-12-10 17:18] VITALS: BP 109/71; PULSE 73; RESP 16; O2SAT 98
[2020-12-13 11:49] LABS: Pathologist Review Reviewed
== END 2020-12-10 17:25 | disposition home or self-care (01) ==
LOC: ED 13:57
PROVIDERS: Emergency Provider Emergency Medicine
DX: C78.7 Secondary malignant neoplasm of liver and intrahepatic bile duct (principal); C78.00 Secondary malignant neoplasm of unspecified lung; C78.89 Secondary malignant neoplasm of other digestive organs; C43.9 Malignant melanoma of skin, unspecified
CPT/HCPCS: 71275; 74177; 80053; 83605; 83690; 85025; 85379; 96361; 96374; 96375; 99285; J7030; Q9967; A4216; J2405